=== PATIENT | male | born 1930 | race Caucasian/White ===

== ENCOUNTER 2017-06-03 04:56 | Inpatient (IN) ==
[2017-06-01 13:42] LABS: Basophils # (Auto) 0 K/mcL (0.0-0.3); Basophils % (Auto) 0.4 % (0.0-2.0); Eosinophils # (Auto) 0 K/mcL (0.0-0.7); Granulocytes % (Auto) 76.8 % (38.0-78.0); Lymphocytes # (Auto) 0.8 K/mcL (1.5-4.8); Lymphocytes % (Auto) 17.5 % (15.5-49.0); Mean Cell Volume 94.6 fL (80.0-100.0); Mean Corpuscular HGB Conc 33.9 g/dL (31.0-36.0); Mean Corpuscular Hemoglobin 32.1 pg (26.0-34.0); Monocytes # (Auto) 0.2 K/mcL (0.1-0.9); Monocytes % (Auto) 4.3 % (1.0-12.0); Platelet Count 210 K/mcL (140-440); RBC 4.15 M/mcL (4.50-5.90); Red Cell Distribution Width 16.6 % (11.5-14.5)
[2017-06-01 13:58] LABS: Blood Urea Nitrogen 16 mg/dl (8-23)
[2017-06-02 15:36] LABS: Appearance,Urine CLEAR; Bilirubin,Urine NEG (NEG); Color,Urine YELLOW; Glucose,Urine (UA) NEGATIVE (NEG); Leukocyte Esterase,Urine NEG /uL (NEG); Nitrate,Urine NEG (NEG); Protein,Urine NEG (NEG); Specific Gravity,Urine 1.019 (1.000-1.035); Urine Blood NEG mg/dL (<0.03)
[2017-06-03] MEDS ORDERED: KETOROLAC 30 MG, ROPIVACAINE HCL/PF 49.5 ML, EPINEPHrine 0.5 MG, 0.9 % SODIUM CHLORIDE ... IJ ONE (06:43)
[2017-06-03] MEDS ORDERED: PREGABALIN 75 MG CAPSULE PO SCH (06:45)
[2017-06-03] MEDS ORDERED: CELECOXIB 200 MG CAPSULE PO SCH (06:45)
[2017-06-03] MEDS ORDERED: ACETAMINOPHEN 500 MG TABLET PO SCH (06:45)
[2017-06-03] MEDS ORDERED: GABAPENTIN 300 MG CAPSULE PO SCH (06:45)
[2017-06-03] MEDS ORDERED: oxyCODONE 10 MG TAB.ER.12H PO SCH (06:45)
[2017-06-03] MEDS ORDERED: IPRATROPIUM/ALBUTEROL 3 ML AMPUL.NEB NEB ONE (07:20)
[2017-06-03] MEDS: ceFAZolin 1 GM VIAL IV SCH ×5 (07:21→23:22)
[2017-06-03] MEDS ORDERED: ROPIVACAINE HCL/PF 20 ML VIAL IJ ONE (08:00)
[2017-06-03] MEDS ORDERED: ONDANSETRON 4 MG/2 ML VIAL IV ONE (08:00)
[2017-06-03] MEDS ORDERED: PROPOFOL 200 MG/20 ML VIAL IV ONE (08:00)
[2017-06-03] MEDS ORDERED: DEXAMETHASONE 10 MG/ML VIAL IV ONE (08:00)
[2017-06-03] MEDS ORDERED: MIDAZOLAM 2 MG/2 ML VIAL IV ONE (08:00)
[2017-06-03] MEDS ORDERED: LIDOCAINE HCL/PF 100 MG/5 ML SYRINGE IV ONE (08:00)
[2017-06-03] MEDS ORDERED: PHENYLEPHRINE 10 MG/ML VIAL IV ONE (08:00)
[2017-06-03] MEDS ORDERED: TRANEXAMIC ACID 1,000 MG/10 ML VIAL IV ONE (08:00)
[2017-06-03] MEDS ORDERED: GENTAMICIN SULFATE 800 MG/20 ML VIAL IR ONE (08:17)
[2017-06-03] MEDS ORDERED: fentaNYL 100 MCG/2 ML VIAL IV PRN (09:34)
[2017-06-03] MEDS ORDERED: diphenhydrAMINE 50 MG/ML VIAL IV PRN (09:34)
[2017-06-03] MEDS ORDERED: LACTATED RINGERS 250 ML IV PRN (09:34)
[2017-06-03] MEDS ORDERED: NALOXONE HCL 0.4 MG/ML VIAL IV PRN (09:34)
[2017-06-03] MEDS ORDERED: HYDROmorphone 2 MG/ML SYRINGE IV PRN ×2 (09:34→10:09)
[2017-06-03] MEDS ORDERED: METHOCARBAMOL 1,000 MG/10 ML VIAL IV PRN (09:34)
[2017-06-03] MEDS ORDERED: MEPERIDINE 25 MG/ML SYRINGE IV PRN (09:34)
[2017-06-03] MEDS ORDERED: FLUMAZENIL 0.1 MG/ML ML IV PRN (09:34)
[2017-06-03] MEDS ORDERED: ePHEDrine 50 MG/ML AMPUL IV PRN (09:34)
[2017-06-03] MEDS ORDERED: PROMETHAZINE 25 MG/ML VIAL IV PRN (09:34)
[2017-06-03] MEDS ORDERED: BENZOCAINE/MENTHOL 1 LOZENGE PO PRN ×2 (09:34→10:09)
[2017-06-03] MEDS ORDERED: MEPERIDINE 50 MG/ML SYRINGE IM PRN (09:34)
[2017-06-03] MEDS ORDERED: IPRATROPIUM/ALBUTEROL 3 ML AMPUL.NEB NEB PRN ×2 (09:34→11:00)
[2017-06-03] MEDS ORDERED: PROMETHAZINE 25 MG/ML VIAL IM PRN (09:34)
[2017-06-03] MEDS ORDERED: ONDANSETRON 4 MG/2 ML VIAL IV PRN ×2 (09:34→10:09)
[2017-06-03] MEDS ORDERED: LACTATED RINGERS 1,000 ML IV SCH (09:45)
[2017-06-03] MEDS ORDERED: POLYETHYLENE GLYCOL 3350 17 GM PACKET PO PRN (10:09)
[2017-06-03] MEDS ORDERED: TRANEXAMIC ACID 1,000 MG/10 ML VIAL IV SCH (10:09)
[2017-06-03] MEDS ORDERED: BISACODYL 10 MG SUPP.RECT PR PRN (10:09)
[2017-06-03] MEDS ORDERED: ACETAMINOPHEN 325 MG TABLET PO PRN (10:09)
[2017-06-03] MEDS ORDERED: MAGNESIUM HYDROXIDE 30 ML ORAL.SUSP PO PRN (10:09)
[2017-06-03] MEDS ORDERED: FLEETS ADULT ENEMA PR PRN (10:09)
[2017-06-03] MEDS ORDERED: HYDROcodone/APAP 10/325MG TABLET PO PRN (10:09)
--- NOTE | 2017-06-03 10:09 | Brief Operative Note ---
Date of procedure: 06/03/17 Pre-op diagnosis: Leftt knee wornout and loose tka Post-op diagnosis: same Procedure: Left knee tka revision all coomp Grafts/Implants: Yes Anesthesia: GETA Findings: tissue showed 3 wbc per hpf Complications: none Surgeon: Dwayne Stevens Childhood Development Teacher: David Ramesh Estimated blood loss (cc): 150 Tourniquet Time (Minutes): 90 Specimens Removed/Pathology: none sent Condition: stable Disposition: PACU
[2017-06-03] MEDS ORDERED: NON FORMULARY MEDICATION 1 DOSE MISCELL (Acetaminophen 650 MG) PO PRN (10:14)
[2017-06-03] MEDS ORDERED: DICLOFENAC SODIUM 1% TOPICAL PRN (10:14)
[2017-06-03] MEDS ORDERED: guaiFENesin 600 MG TAB.SR.12H PO PRN (10:14)
[2017-06-03] MEDS ORDERED: ALBUTEROL SULFATE INH PRN (10:14)
[2017-06-03] MEDS ORDERED: POLYVINYL ALCOHOL OPHTH DROPS 15ML BOTTLE OU PRN (10:30)
--- NOTE | 2017-06-03 11:07 | XRay Report ---
HISTORY: Reason for Exam:Post-Op Total Knee FINDINGS: There is a well positioned total knee prosthesis. Along both medial and lateral sides of the joint there are small clusters of calcifications with irregular margins. These may be dystrophic calcifications from chronic inflammation/arthritis or small bone chips related to the surgery. There is no other evidence of a fracture. A moderate amount of calcified plaque is present in the superficial femoral and popliteal arteries. IMPRESSION: Well-positioned knee prosthesis Interpreted and Authenticated by: Primitivo Shaffer 06/03/17
[2017-06-03] MEDS: 0.45 % SODIUM CHLORIDE 1,000 ML IV SCH ×2 (11:58→20:52)
[2017-06-03] MEDS: KETOROLAC 15 MG/ML VIAL IV SCH ×3 (14:17→23:22)
[2017-06-03] MEDS: 0.9 % SODIUM CHLORIDE 10 ML SYRINGE IV SCH ×2 (14:18→23:23)
--- NOTE | 2017-06-03 14:49 | Operative Note ---
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 PROCEDURE: Left revision total knee arthroplasty of all the components, both patellofemoral, femoral and tibial components. SURGEON: Dwayne Stevens M.D. INVESTOR RELATIONS COORDINATOR: David Ramesh PA-C. ANESTHESIA: General LMA anesthesia. COMPLICATIONS: None. SPECIMENS: Fresh frozen tissue samples which showed less than 3 white blood cells per high-powered field with an extensive granulomatous material throughout the knee. IMPLANTS PLACED: A size 5 femur, size 5 tibial baseplate with 10 mm augments medial and lateral and a 5 mm augment laterally, a 13 mm poly. The femoral stem was 150 mm with 17 mm in diameter. The tibial stem was 16 mm, 150 mm in total length. DESCRIPTION OF PROCEDURE: The patient was brought to the operating room and put to sleep with general LMA anesthesia. Once we confirmed the left leg to be the operative site and the procedure to be a complete revision, a midline incision was made. This midline incision exposed the anterior capsule. We made a mid vastus approach to the knee and subluxed the patella laterally. We irrigated thoroughly and found the lateral patella to be impinging on the implant and uncovered with polyethylene. Once we then removed the femoral component and the tibial baseplate, which the tibial baseplate was loose, bone cement was also excised. We then placed an intramedullary guide shahriar into the tibia, made our freshened cut of 5 mm, placed a tibial baseplate with a 150 mm stem, 6 mm of offset at 1 o'clock position. Once this was done, we then removed osteophytes posteriorly. Also granulomatous materials in the medial and lateral gutters were removed. Specimens were sent for high-powered mendez of soft tissue for white blood cell count. Intramedullary guide shahriar into the femur. We reamed up to the size 17, made our distal femoral cut at 10 mm, measured from the mid portion of the medial and lateral epicondyles setting rotation. We placed the trial with a box cut with I believe a size 6 femur with a 5 mm lateral augment and 10 mm distal augments. These fit very well with a 13 poly. Full extension achieved, and the knee was stable throughout the range of motion. Both flexion and extension, equally balanced. We irrigated thoroughly. We cemented into place the tibial component as noted above, the femoral component. The patella was prepared by cutting the old patella off, at least the poly, preserving most of the bone and a small lateral chamfer. We then used an oval patella to covered 90% of the patella. This fit very nicely and moved the patella more laterally to match the patient's true anatomy. We irrigated thoroughly and cemented into place the patella. It sat perfectly in the groove, tracked very nicely. We irrigated. Total thickness was back to 24 mm, his normal anatomy. We then irrigated thoroughly and then once the cement was dried, we placed the final 13 poly implant. We deflated the tourniquet at about 90 minutes. Bleeding was controlled with Bovie, and the mid vastus approach was closed with #1 suture x2. These were barbed sutures. The skin was closed with 2-0 Vicryl and adhesive closure. Sterile bandage applied. The patient tolerated this well. Blood loss was about 50 mL to 100 mL. ALEXANDRA:clara Job ID: [id number] Doc ID: [id number] Dwayne Stevens MD
[2017-06-03] MEDS ORDERED: tiZANidine 4 MG TABLET PO PRN (15:00)
[2017-06-03] MEDS: metFORMIN 500 MG TABLET PO SCH (17:12)
[2017-06-03] MEDS: OMEPRAZOLE 20 MG CAPSULE PO SCH (17:12)
[2017-06-03] MEDS: GABAPENTIN 300 MG CAPSULE PO SCH (20:46)
[2017-06-03] MEDS: DOCUSATE SODIUM 100 MG CAPSULE PO SCH (20:46)
[2017-06-03] MEDS: APIXABAN 5 MG TABLET PO SCH (20:48)
[2017-06-03] MEDS ORDERED: SENNOSIDES 1 TABLET PO SCH (21:00)
[2017-06-03] MEDS ORDERED: TAMSULOSIN 0.4 MG CAPSULE PO SCH (21:00)
[2017-06-03] MEDS ORDERED: ASPIRIN 325 MG ENTERIC COATED TABLET PO SCH (21:00)
[2017-06-03] MEDS ORDERED: TEMAZEPAM 15 MG CAPSULE PO PRN (21:00)
[2017-06-03] MEDS ORDERED: MONTELUKAST 10 MG TABLET PO SCH (21:00)
[2017-06-03] MEDS: Budesonide/Formoterol Fumarate [Symbicort 160-4.5 MCG] Inhaler INH SCH (23:23)
[2017-06-04] MEDS: 0.9 % SODIUM CHLORIDE 10 ML SYRINGE IV SCH (05:50)
[2017-06-04] MEDS: KETOROLAC 15 MG/ML VIAL IV SCH (05:50)
[2017-06-04] MEDS: 0.45 % SODIUM CHLORIDE 1,000 ML IV SCH (07:24)
[2017-06-04] MEDS: OMEPRAZOLE 20 MG CAPSULE PO SCH (07:25)
[2017-06-04] MEDS: metFORMIN 500 MG TABLET PO SCH (07:25)
[2017-06-04] MEDS: APIXABAN 5 MG TABLET PO SCH (08:39)
[2017-06-04] MEDS: DOCUSATE SODIUM 100 MG CAPSULE PO SCH (08:39)
[2017-06-04] MEDS: GABAPENTIN 300 MG CAPSULE PO SCH (08:39)
[2017-06-04] MEDS: Budesonide/Formoterol Fumarate [Symbicort 160-4.5 MCG] Inhaler INH SCH (08:42)
[2017-06-04] MEDS ORDERED: CYANOCOBALAMIN (VITAMIN B-12) 500 MCG TABLET PO SCH (09:00)
[2017-06-04] MEDS ORDERED: MAGNESIUM OXIDE 400 MG TABLET PO SCH (09:00)
[2017-06-04] MEDS ORDERED: TIOTROPIUM BROMIDE 18 MCG INHALANT INH SCH (09:00)
[2017-06-04] MEDS ORDERED: VITAMIN D3 5,000 UNIT CAPSULE PO SCH (09:00)
[2017-06-04] MEDS ORDERED: LISINOPRIL 5 MG TABLET PO SCH (09:00)
[2017-06-04] MEDS ORDERED: FUROSEMIDE 20 MG TABLET PO SCH (09:00)
[2017-06-04] MEDS ORDERED: ASCORBIC ACID 500 MG TABLET PO SCH (09:00)
[2017-06-04] MEDS ORDERED: DILTIAZEM 240 MG CAP.XL.24H PO SCH (09:00)
--- NOTE | 2017-06-04 09:03 | Orthopedic Progress Note ---
Subjective Patient information: Note initiated : 06/04/17 at 9:01 am Service Date, if different from initiated Date: [] Patient: Darrian Sheikh 86 y/o M admitted on 06/03/17 for Left Total Knee Arthroplasty Revision. Chief Complaint: [minimal pain and walking well with no sob or cp ] Objective Vital signs: Vital Signs Temp Pulse Pulse Resp BP Pulse Ox 06/04/17 06:55 97.6 F 20 133/85 97 06/04/17 03:52 97.2 F 101 H 18 108/75 93 06/04/17 02:00 93 06/04/17 01:33 95 H 06/03/17 23:35 19 06/03/17 23:20 97.3 F 95 H 19 101/67 93 06/03/17 22:00 93 06/03/17 20:00 91 06/03/17 19:52 97.4 F 72 18 107/70 92 06/03/17 18:00 91 06/03/17 16:06 95 06/03/17 16:00 96.9 F L 18 128/82 95 06/03/17 14:25 121/86 95 06/03/17 13:59 117/66 98 06/03/17 13:25 113/81 92 06/03/17 13:00 91 H 91 H 06/03/17 12:55 117/75 98 06/03/17 12:10 119/76 95 06/03/17 11:55 119/86 97 06/03/17 11:40 96.4 F L 18 118/79 90 06/03/17 11:15 98.8 F 84 15 115/81 93 06/03/17 11:00 84 15 115/81 93 06/03/17 10:45 89 13 108/67 94 06/03/17 10:32 98.8 F 89 12 121/75 94 06/03/17 10:11 91 H 91 H 96 Intake and Output 06/03/17 06/04/17 06/04/17 21:59 05:59 13:59 Intake Total 1710 / 1710 250 / 250 1200 / 1200 Output Total 1450 / 1450 1450 / 1450 Balance 260 / 260 -1200 / -1200 1200 / 1200 Intake: IV 890 / 890 1000 / 1000 Sodium Chloride 0.45% 1,000 ml 890 / 890 1000 / 1000 @ 100 mls/hr IV .Q10H ROSALIA Rx#: [id number] Oral 820 / 820 250 / 250 200 / 200 Output: Urine Catheter Amount 1450 / 1450 Void Amount 1450 / 1450 Other: Meal Dinner Breakfast Percent of Meal Consumed 100% 100% Feeding Ability Independent Weight 212 lb Intake & Output: Intake & Output 06/03/17 06/04/17 06/04/17 21:59 05:59 13:59 Intake Total 1710 / 1710 250 / 250 1200 / 1200 Output Total 1450 / 1450 1450 / 1450 Balance 260 / 260 -1200 / -1200 1200 / 1200 Weight 212 lb Intake: IV 890 / 890 1000 / 1000 Sodium Chloride 0.45% 1,000 ml 890 / 890 1000 / 1000 @ 100 mls/hr IV .Q10H ROSALIA Rx#: [id number] Oral 820 / 820 250 / 250 200 / 200 Output: Urine Catheter Amount 1450 / 1450 Void Amount 1450 / 1450 Other: Meal Dinner Breakfast Percent of Meal Consumed 100% 100% Feeding Ability Independent Incision: Yes healing Incision clean and dry: Yes Dressing: Yes clean Weight bearing status: full Neurological exam IM: Yes oriented X3, Yes neurovascular intact Extremities exam IM: Yes Foot pink and warm, Yes neurovascular intact - Allied Health Allied health notes reviewed: PT (dc home today) - Labs CBC & BMP: 06/04/17 05:15 06/01/17 11:45 Labs: Orthopedic Labs 06/01/17 11:45 PT 14.3 INR 1.1 APTT 30 06/04/17 06/01/17 05:15 11:45 Hgb 13.3 L Hct 29.9 L 39.3 L
--- NOTE | 2017-06-04 09:08 | Discharge Summary ---
Ortho Discharge - TKA - Patient Instructions Diet: Regular Diet Activity: activity as tolerated, weight bearing as tolerated Total Knee Protocol: For Total Knee: Start ROM JOSE with stationary bike or rocking chair. Work on gaining full extension of knee. Posterior dislocation precautions provided. Hip abductor strengthening and gait training instructions provided. Apply Cryocuff as instructed. Dressing Care: May shower in 2 days Additional Dressing Instructions: Remove dressing on post op day #1 May remove bandage on post op day #1 and shower. Do not rub or wash wound, but may get it wet. Patient Education: Revision Total Joint Arthroplasty (DC) Additional Instructions: Discharge Instructions: Do the exercises at home that physical therapy gave you. Weight bearing as tolerated. Please call [facility] on TuesdayJune 06 to setup an appointment, . Wear comfortable clothing for your physical therapy. Take your prescription, photo ID, insurance cards, and current medication list with you to your first physical therapy appointment. Take your prescription to slate picker any medication or equipment (such as walker, crutches, toilet riser or C.P.M.) CPM for home use You have Dermabond (a dressing with a mesh-like appearance), leave open to air. Do not remove this dressing. You may start showering on post op day #2, TuesdayJune 05. The Dermabond dressing can get wet, do not scrub dressing. Pat dry. To avoid constipation while taking any narcotic pain medication, take an over the counter stool softener/laxative. Use your Cryocuff or ice packs as directed, on for 20 minutes at a time throughout the day. This and elevation will help with pain and swelling. Call your physician for fevers above 100.5 or pain not controlled by medication. Your prescriptions are with your discharge information. Some medications were electronically transmitted to your pharmacy of choice. - Follow Up Plan Follow Up Appointments: Dwayne Stevens MD [Family Provider] - 06/16/17 2:20 pm Disposition: Home, Self-Care Prognosis: Good Rehab Potential: Good I certify that the patient requires SNF services: No Overall status at discharge: patient is progressing back to baseline - Orders For Discharge Prescriptions: Aspirin [Ecotrin] 325 mg PO DAILY #14 tab.ec Hydrocodone/APAP 7.5/325Mg [[place] 7.5/325Mg] 1 - 2 tab PO Q4HP PRN #60 tab PRN Reason: Pain Additional Discharge Orders: Physical Therapy at Discharge - TKA Location: Determined By Patient CPM Discharge Order Location: Determined By Patient Toilet Riser Discharge Order Location: Determined By Patient Walker Location: Determined By Patient
[2017-06-04] MEDS ORDERED: FLU VACC QS2017-18 36MOS UP/PF 60 MCG/0.5 ML SYRINGE IM ONE (10:00)
--- NOTE | 2017-06-06 13:07 | Surgical Pathology Report ---
HISTOLOGY SPECIMEN MICROSCOPIC DIAGNOSIS CORRECTED REPORT TO FIX TYPOGRAPHICAL ERROR IN GROSS DESCRIPTION; DIAGNOSES ARE UNCHANGED: SPECIMEN A - SOFT TISSUE, LEFT KNEE, CAPSULE #1, BIOPSY: -- PATCHY CHRONIC INFLAMMATION WITH IRREGULAR FIBROSIS. -- NO NEUTROPHILS IDENTIFIED. SPECIMEN B - SOFT TISSUE, LEFT KNEE, CAPSULE #2, BIOPSY: -- PATCHY CHRONIC INFLAMMATION WITH IRREGULAR FIBROSIS. -- NO NEUTROPHILS IDENTIFIED. (ACP:sln) INTRAOPERATIVE CONSULTATION FROZEN SECTION DIAGNOSIS ([facility] [place], [place]) SPECIMEN A - LEFT KNEE, CAPSULE #1, BIOPSY: -- NO NEUTROPHILS IDENTIFIED. SPECIMEN B - LEFT KNEE, CAPSULE #2, BIOPSY: -- NO NEUTROPHILS IDENTIFIED. (ACP:sln) PROCEDURAL IMPRESSION Left failed total knee. GROSS DESCRIPTION Specimen A is received fresh as capsule #1, and consists of a yellow-goodwin portion of soft tissue that measures 5.0 x 2.0 x 1.0 cm. pappillary appearing areas of pale yellow discoloration are noted. Most of the specimen is submitted for frozen section analysis and for permanent sections as [id number]. Specimen B is recieved fresh as capsule #2, and consists of a pale yellow portion of soft tissue that measures 4.0 x 2.1 x 1.0 cm. Areas of cautery artifact are noted. Most of the specimen is submitted for frozen section analysis and for permanent sections as [id number]. (ACP:sln) Electronically Signed by: Aries Shaffer M.D.
== END 2017-06-04 11:15 | disposition home or self-care (01) | DRG 468 ==
LOC: MEDSUR 04:56
PROVIDERS: ADMIT Orthopaedic Surgery; ATTEND Orthopaedic Surgery

== ENCOUNTER 2020-04-02 16:34 | Inpatient (IN) ==
[2020-04-02] MEDS ORDERED: 0.9 % SODIUM CHLORIDE 1,000 ML IV ONE (17:08)
--- NOTE | 2020-04-02 17:37 | Emergency Department Note ---
HPI General Chief complaint: Weakness Stated complaint: Cold symptoms Time Seen by Provider: 04/02/20 17:16 Source: EMS Mode of arrival: EMS Limitations: no limitations History of Present Illness HPI Narrative: Narrative: This patient was brought in from home in [place] by EMS for fever cough shortness of breath nausea and diarrhea. He began getting ill yesterday with cough productive of some green-yellow phlegm. He does have a history of COPD and heart failure. He has had some chills and fever today. He has developed some watery diarrhea and nausea but has not actually vomited. He does feel slightly short of breath. Patient does describe having some mild pain in the left side of his neck towards his left shoulder and left clavicle. This pain is made worse by coughing. Onset (ago): day(s) Location: chest Severity: moderate Improves with: none Worsens with: other (Cough) Associated symptoms: Reports chest pain, cough, fever/chills, headaches, nausea/vomiting, shortness of breath and weakness Treatments Prior to Arrival: none Related Data Home Medications Medication Instructions Recorded Confirmed metformin 1,000 mg tablet 1,000 mg PO BIDCC 05/11/17 01/16/20 apixaban 2.5 mg tablet 2.5 mg PO BID 05/25/17 01/16/20 budesonide-formoterol HFA 160 2 puff INHALATION BID g 05/25/17 01/16/20 mcg-4.5 mcg/actuation aerosol inhaler guaifenesin 600 mg tablet, 600 mg PO Q12H PRN 05/25/17 01/16/20 extended release 12 hr tamsulosin 0.4 mg capsule 0.4 mg PO HS 05/25/17 01/16/20 albuterol sulfate 2 inh INHALATION Q4HP PRN 06/01/17 01/16/20 cyanocobalamin (vitamin B-12) 1,000 mcg PO DAILY 06/01/17 01/16/20 tizanidine 4 mg PO HSP PRN 06/01/17 01/16/20 amiodarone 200 mg PO QAC 12/23/17 01/16/20 multivitamin 1 cap PO QAM 06/13/18 01/16/20 nitroglycerin 0.4 mg sublingual 0.4 mg SUBLINGUAL Q5-15M PRN 06/13/18 01/16/20 tablet potassium chloride 10 mEq 10 meq PO QDAY 06/13/18 01/16/20 capsule,extended release tiotropium bromide 2.5 2 puff INHALATION QDAY 10/18/18 01/16/20 mcg/actuation mist for inhalation gabapentin 300 mg PO BID 11/13/18 01/16/20 montelukast 10 mg PO HS 11/13/18 01/16/20 acetaminophen 500 mg tablet See Rx Instructions PO TID PRN tab 05/18/19 01/16/20 ascorbate calcium (vitamin C) 500 0.5 g PO BID tab 05/18/19 01/16/20 mg tablet bisoprolol fumarate 10 mg tablet 5 mg PO QDAY tab 05/18/19 01/16/20 cholecalciferol (vitamin D3) 125 5,000 unit PO QDAY 05/18/19 01/16/20 mcg (5,000 unit) capsule ferrous sulfate 325 mg (65 mg 325 mg PO BID 05/18/19 01/16/20 iron) tablet ipratropium 0.5 mg-albuterol 3 mg 3 ml INHALATION .q4 PRN ml 05/18/19 01/16/20 (2.5 mg base)/3 mL nebulization soln omeprazole 20 mg capsule,delayed 40 mg PO BID cap 05/18/19 01/16/20 release sertraline 25 mg tablet 50 mg PO QDAY tab 05/18/19 01/16/20 spironolactone 25 mg tablet 12.5 mg PO QDAY tab 05/18/19 01/16/20 Previous Rx's Medication Instructions Recorded celecoxib 200 mg PO DAILY #10 cap 03/08/19 furosemide 20 mg PO DAILY #30 tab 01/16/20 azithromycin 250 mg PO DAILY #6 tab 03/05/20 prednisone 40 mg PO QDAY #10 tab 03/05/20 Allergies Allergy/AdvReac Type Severity Reaction Status Date / Time No Known Drug Allergies Allergy Verified 04/02/20 16:35 Review of Systems ROS ROS Narrative: Narrative: All systems ED: reviewed and negative except as stated. COUNT INCLUDES THE [facility] Narrative Patient History Narrative: Narrative: Medical/Surgical/Family History All Active Problems (Updated 04/02/20 @ 20:43 by Des Oshea MD) Congestive heart failure (Acute) Hypomagnesemia (Acute) Pneumonia (Acute) Pleural effusion (Chronic) COPD with exacerbation (Acute) DNR no code (do not resuscitate) (Chronic) Chronic anticoagulation (Chronic) Atrial fibrillation (Chronic) COPD (chronic obstructive pulmonary disease) (Chronic) History of myocardial infarction (Chronic) Atherosclerotic heart disease of [place] coronary artery without angina pectoris (Chronic) Type 2 diabetes mellitus (Chronic) Diabetic neuropathy (Chronic) MAG (obstructive sleep apnea) (Chronic) Hypertension (Chronic) Hypoxemia (Chronic) Pleural effusion on right (Chronic) Walker as ambulation aid (Chronic) Use of cane as ambulatory aid (Chronic) Snoring (Chronic) Poor historian (Chronic) Urinary frequency (Chronic) Spinal stenosis (Chronic) Arthritis (Chronic) Dysphasia (Chronic) Carpal tunnel syndrome (Chronic) Ulnar neuropathy (Chronic) Pain in joint (Chronic) Osteoarthritis (Chronic) Dysphagia (Chronic) Depression (Chronic) Confusion (Chronic) Chronic back pain (Chronic) Chronic radicular lumbar pain (Chronic) Medical History (Updated 04/02/20 @ 20:43 by Des Oshea MD) Abdominal pain (Resolved) Acute pericarditis (Resolved) Arthritis (Chronic) Atherosclerotic heart disease of [place] coronary artery without angina pectoris (Chronic) Atrial fibrillation (Chronic) Carpal tunnel syndrome (Chronic) Chronic anticoagulation (Chronic) apixaban, for afib. Chronic back pain (Chronic) Chronic radicular lumbar pain (Chronic) Confusion (Chronic) COPD (chronic obstructive pulmonary disease) (Chronic) COPD with exacerbation (Acute) Depression (Chronic) Diabetic neuropathy (Chronic) DNR no code (do not resuscitate) (Chronic) Per discussion 12/06/2019 in the emergency room with Dr. Solares. Patient seemed quite lucid and aware and capable of making this decision. Dry skin (Inactive) Dysphagia (Chronic) Dysphasia (Chronic) Fall from slip, trip, or stumble (Resolved) Headache (Resolved) History of myocardial infarction (Chronic) Hypertension (Chronic) Hypotension (Resolved) Hypoxemia (Chronic) MAG (obstructive sleep apnea) (Chronic) Osteoarthritis (Chronic) Pain in joint (Chronic) Pleural effusion on right (Chronic) Poor historian (Chronic) RUQ pain (Resolved) Mild right upper quadrant pain on deep inspiration. Encouraged to make primary care aware and his gastroenterology team. Seek care if worsens. 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) Family History Son , Onset Age: 48 Heart attack Heart disease Father , Onset Age: 57 Heart attack Mother , Onset Age: 72 Heart attack Heart disease Sister , Onset Age: 48 Heart attack Heart disease Brother , Onset Age: 68 Heart attack Heart disease Brother , Onset Age: 70 Heart attack Heart disease Brother , Onset Age: 78 Heart attack Heart disease Social History Smoking Status: Former smoker Alcohol Intake Frequency: does not drink Substance Use: does not use Exam Narrative Narrative: Narrative: General Limitations: no limitations Head Head: atraumatic, normocephalic and normal inspection Eye Eye: Present normal appearance, PERRL and EOMI; Absent scleral icterus and conjunctival injection ENT ENT: Present normal exam, normal oropharynx and mucous membranes moist Neck Neck: Present normal inspection and full ROM Chest Chest: Present normal inspection and symmetric chest wall rise Respiratory Respiratory: Present rales/crackles; Absent respiratory distress and wheezes Cardiovascular Cardiovascular: Present regular rate, normal rhythm and normal heart sounds Adbominal Abdominal: Present soft, tenderness, normal bowel sounds and other (Patient says that he always has some tenderness in the right upper quadrant.); Absent distention, guarding, rebound and rigidity Expanded Abdominal Abdominal Tenderness: Present RUQ and mild Extremities Extremities: Present normal inspection; Absent pedal edema and pretibial edema Neurological Neurological: Present alert Psychiatric Psychiatric: Present normal affect Skin Skin: Present warm and dry; Absent rash and diaphoresis Course Vital Signs Vital signs: Vital Signs Temperature 101.4 F H 04/02/20 16:35 Pulse Rate 108 H 04/02/20 16:35 Respiratory Rate 24 H 04/02/20 16:35 Blood Pressure 128/70 04/02/20 16:35 Pulse Oximetry (%) 98 04/02/20 16:35 Temperature 100.3 F H 04/02/20 18:01 Pulse Rate 71 04/02/20 19:31 Respiratory Rate 30 H 04/02/20 19:16 Blood Pressure 102/58 04/02/20 19:31 Pulse Oximetry (%) 98 04/02/20 19:31 MDM MDM Narrative Medical decision making narrative: Narrative: Patient work-up discloses a probable small pneumonia in the right lung field. Rest of his work-up and lab work and urine were reassuring. He may have some heart failure going on with a reading of that on his lung field and a BNP that is elevated. But his saturations have been good on oxygen. He will be admitted to the hospital for pneumonia by Dr. Anne. We did blood cultures and gave the patient Rocephin and doxycycline. Differential Diagnosis Differential Diagnosis: Pneumonia, COVID infection, sepsis, acute coronary syndrome Lab Data Lab results reviewed: Yes I reviewed the patient's lab results. Result diagrams: 04/02/20 17:18 04/02/20 17:18 Labs: Lab Results 04/02/20 04/02/20 04/02/20 Range/Units 17:18 17:18 17:18 WBC 8.0 (4.50-11.00) K/mcL RBC 3.35 L (4.63-6.08) M/mcL Hgb 10.8 L (13.7-17.5) g/dL Hct 32.1 L (40.1-51.0) % MCV 95.8 (80.0-100.0) fL MCH 32.2 (26.0-34.0) pg MCHC 33.6 (31.0-36.0) g/dL RDW 15.9 H (11.5-14.5) % Plt Count 197 (140-440) K/mcL MPV 9.5 (7.4-10.4) fL Gran % 84.8 H (38.0-78.0) % Lymph % (Auto) 6.8 L (15.5-49.0) % [place] % (Auto) 7.3 (1.0-12.0) % Eos % (Auto) 0.8 (0.0-7.0) % Baso % (Auto) 0.3 (0.0-2.0) % Gran # 6.76 (1.80-8.00) K/mcL Lymph # (Auto) 0.54 L (1.50-4.80) K/mcL [place] # (Auto) 0.58 (0.10-0.90) K/mcL Eos # (Auto) 0.06 (0.00-0.70) K/mcL Baso # (Auto) 0.02 (0.00-0.30) K/mcL VBG Lactic Acid 1.9 (0.5-2.0) mmol/L Sodium 131 L (133-145) mmol/L Potassium 4.7 (3.3-5.1) mmol/L Chloride 92 L (96-108) mmol/L Carbon Dioxide 27 (22-30) mmol/L Anion Gap 12.0 (8-16) BUN 11 (8-23) mg/dl Creatinine 0.8 (0.7-1.2) mg/dl GFR Calculation 80 Glucose 181 H (70-105) mg/dL Calcium 9.8 (8.6-10.4) mg/dl Total Bilirubin 1.3 H (0.0-1.0) mg/dL AST 18 (0-37) U/l ALT 12 (0-40) U/l Alkaline Phosphatase 52 (39-117) U/L Troponin T (0-0.03) ng/ml NT-Pro-B Natriuret Pep (0-450) pg/ml Total Protein 6.4 (5.9-8.4) gm/dL Albumin 3.9 (3.2-5.2) gm/dL Globulin 2.5 (2.2-3.7) gm/dL Albumin/Globulin Ratio 1.6 (1.0-2.3) Urine Color Urine Appearance Urine pH (5.0-9.0) Ur Specific [place] (1.000-1.035) Urine Protein (NEG) mg/dL Urine Glucose (UA) (NEG) mg/dL Urine Ketones (NEG) mg/dL Urine Occult Blood (<0.03) mg/dL Urine Nitrate (NEG) Urine Bilirubin (NEG) mg/dL Urine Urobilinogen (NEG) mg/dL Ur Leukocyte Esterase (NEG) /uL Urine RBC (0-1) /hpf Urine WBC (0-4) /hpf Ur Squamous Epith Cells (0-4) /hpf Urine Bacteria (0) /hpf Urine Mucus (0) /hpf Ur Culture Indicated? 04/02/20 04/02/20 04/02/20 Range/Units 17:18 17:18 17:46 WBC (4.50-11.00) K/mcL RBC (4.63-6.08) M/mcL Hgb (13.7-17.5) g/dL Hct (40.1-51.0) % MCV (80.0-100.0) fL MCH (26.0-34.0) pg MCHC (31.0-36.0) g/dL RDW (11.5-14.5) % Plt Count (140-440) K/mcL MPV (7.4-10.4) fL Gran % (38.0-78.0) % Lymph % (Auto) (15.5-49.0) % [place] % (Auto) (1.0-12.0) % Eos % (Auto) (0.0-7.0) % Baso % (Auto) (0.0-2.0) % Gran # (1.80-8.00) K/mcL Lymph # (Auto) (1.50-4.80) K/mcL [place] # (Auto) (0.10-0.90) K/mcL Eos # (Auto) (0.00-0.70) K/mcL Baso # (Auto) (0.00-0.30) K/mcL VBG Lactic Acid (0.5-2.0) mmol/L Sodium (133-145) mmol/L Potassium (3.3-5.1) mmol/L Chloride (96-108) mmol/L Carbon Dioxide (22-30) mmol/L Anion Gap (8-16) BUN (8-23) mg/dl Creatinine (0.7-1.2) mg/dl GFR Calculation Glucose (70-105) mg/dL Calcium (8.6-10.4) mg/dl Total Bilirubin (0.0-1.0) mg/dL AST (0-37) U/l ALT (0-40) U/l Alkaline Phosphatase (39-117) U/L Troponin T 0.02 (0-0.03) ng/ml NT-Pro-B Natriuret Pep 1299.0 H (0-450) pg/ml Total Protein (5.9-8.4) gm/dL Albumin (3.2-5.2) gm/dL Globulin (2.2-3.7) gm/dL Albumin/Globulin Ratio (1.0-2.3) Urine Color Yellow Urine Appearance Clear Urine pH 6.0 (5.0-9.0) Ur Specific [place] 1.015 (1.000-1.035) Urine Protein Neg (NEG) mg/dL Urine Glucose (UA) 50 A (NEG) mg/dL Urine Ketones Neg (NEG) mg/dL Urine Occult Blood Neg (<0.03) mg/dL Urine Nitrate Neg (NEG) Urine Bilirubin Neg (NEG) mg/dL Urine Urobilinogen 4.0 A (NEG) mg/dL Ur Leukocyte Esterase Neg (NEG) /uL Urine RBC 1 (0-1) /hpf Urine WBC 1 (0-4) /hpf Ur Squamous Epith Cells 0 (0-4) /hpf Urine Bacteria 0 (0) /hpf Urine Mucus Few (0) /hpf Ur Culture Indicated? No Radiology Data Radiology results reviewed: Yes I reviewed the patient's radiology results. Discharge Plan Patient/Caregiver Discharge Instructions Pt seen by [employer]PERATOR/PA only: No Clinical Impression: Pneumonia Patient Disposition: Xfer As Inpt ([facility]) Follow up with: Leonie Simpson ARNP [Primary Care Provider] - Prescriptions: No Action metformin 1,000 mg tablet 1,000 mg PO BIDCC RF: 0 multivitamin capsule 1 cap PO QAM RF: 0 nitroglycerin 0.4 mg tablet, sublingual 0.4 mg SUBLINGUAL Q5-15M PRN (Reason: Chest Pain) RF: 0 potassium chloride 10 mEq capsule, extended release 10 meq PO QDAY RF: 0 apixaban 2.5 mg tablet 2.5 mg PO BID RF: 0 budesonide-formoterol 160-4.5 mcg/actuation HFA aerosol inhaler 2 puff INHALATION BID RF: 0 guaifenesin 600 mg tablet extended release 12hr 600 mg PO Q12H PRN (Reason: Pain) RF: 0 tamsulosin 0.4 mg capsule,extended release 24hr 0.4 mg PO HS RF: 0 ipratropium-albuterol 0.5 mg-3 mg(2.5 mg base)/3 mL solution for nebulization 3 ml INHALATION .q4 PRN (Reason: Shortness Of Breath) RF: 0 omeprazole 20 mg capsule,delayed release(DR/EC) 40 mg PO BID RF: 0 Spiriva Respimat 2.5 mcg/actuation mist 2 puff INHALATION QDAY RF: 0 acetaminophen [Tylenol Extra Strength] 500 mg tablet See Rx Instructions PO TID PRN (Reason: Pain) RF: 0 ascorbate calcium (vitamin C) 500 mg tablet 0.5 g PO BID RF: 0 bisoprolol fumarate 10 mg tablet 10 mg tablet 5 mg PO QDAY RF: 0 cholecalciferol (vitamin D3) 5,000 unit capsule 5,000 unit PO QDAY RF: 0 ferrous sulfate [iron] 325 mg (65 mg iron) tablet 325 mg PO BID RF: 0 sertraline 25 mg tablet 50 mg PO QDAY RF: 0 spironolactone 25 mg tablet 12.5 mg PO QDAY RF: 0 tizanidine 4 MG tablet 4 mg PO HSP PRN (Reason: LEG CRAMPS) RF: 0 cyanocobalamin (vitamin B-12) 500 MCG tablet 1,000 mcg PO DAILY RF: 0 albuterol sulfate 6.7 GM HFA aerosol inhaler 2 inh INHALATION Q4HP PRN (Reason: shortness of breath) RF: 0 amiodarone 200 MG tablet 200 mg PO QAMCC RF: 0 montelukast 10 MG tablet 10 mg PO HS RF: 0 gabapentin 300 MG capsule 300 mg PO BID RF: 0 celecoxib 200 MG capsule 200 mg PO DAILY Qty: 10 RF: 0 furosemide 20 MG tablet 20 mg PO DAILY Qty: 30 RF: 0 azithromycin [azithromycin] 250 MG tablet 250 mg PO DAILY Qty: 6 RF: 0 prednisone 20 mg tablet 40 mg PO QDAY Qty: 10 RF: 0
[2020-04-02 17:41] LABS: Basophils # (Auto) 0.02 K/mcL (0.00-0.30); Basophils % (Auto) 0.3 % (0.0-2.0); Eosinophils # (Auto) 0.06 K/mcL (0.00-0.70); Eosinophils % (Auto) 0.8 % (0.0-7.0); Granulocytes % (Auto) 84.8 % (38.0-78.0); Hematocrit 32.1 % (40.1-51.0); Hemoglobin 10.8 g/dL (13.7-17.5); Lymphocytes # (Auto) 0.54 K/mcL (1.50-4.80); Lymphocytes % (Auto) 6.8 % (15.5-49.0); Mean Cell Volume 95.8 fL (80.0-100.0); Mean Corpuscular HGB Conc 33.6 g/dL (31.0-36.0); Mean Platelet Volume 9.5 fL (7.4-10.4); Monocytes # (Auto) 0.58 K/mcL (0.10-0.90); Monocytes % (Auto) 7.3 % (1.0-12.0); Platelet Count 197 K/mcL (140-440); RBC 3.35 M/mcL (4.63-6.08); Red Cell Distribution Width 15.9 % (11.5-14.5)
[2020-04-02 17:58] LABS: ALT/SGPT 12 U/l (0-40); AST/SGOT 18 U/l (0-37); Albumin 3.9 gm/dL (3.2-5.2); Albumin/Globulin Ratio 1.6 (1.0-2.3); Alkaline Phosphatase 52 U/L (39-117); Bilirubin,Total 1.3 mg/dL (0.0-1.0); Blood Urea Nitrogen 11 mg/dl (8-23); Calcium 9.8 mg/dl (8.6-10.4); Carbon Dioxide 27 mmol/L (22-30); Globulin 2.5 gm/dL (2.2-3.7); Glomerular Filtration Rate 80; Glucose 181 mg/dL (70-105)
[2020-04-02 17:59] LABS: Chloride 92 mmol/L (96-108)
--- NOTE | 2020-04-02 18:11 | XRay Report ---
INDICATION: Cough and fever TECHNIQUE: AP portable upright chest x-ray COMPARISON: Previous examinations dated 03/05/2020, 01/30/2020 FINDINGS:Previous right reverse shoulder arthroplasty Lungs:Left lung is negative. No focal parenchymal infiltrate or mass. Small volume right lung. Clinical correlation for previous surgery recommended. There is blunting of the right costophrenic angle. There is focal density at the right lung base. This is chronic. This may be chronic volume loss. Heart, vascular:Generalized cardiomegaly, unchanged. Pulmonary vascularity is prominent with upper lobe redistribution. Appearance is consistent with pulmonary congestion. No pulmonary edema Mediastinum, zackary:There are calcifications consistent with old granulomatous disease Pleura:Blunting of right costophrenic angle consistent with small right effusion. This is unchanged Skeletal:Negative. IMPRESSION: 1. Cardiomegaly and probable pulmonary congestion 2. Blunting of the right costophrenic angle consistent with small effusion 3. Low volume right lung as compared with the left 4. Mild right basilar parenchymal density. This is chronic. No acute infiltrate. Interpreted and Authenticated by: Americo Elaine 04/02/20
[2020-04-02 18:22] LABS: Appearance,Urine CLEAR; Bacteria,Urine 0 /hpf (0); Bilirubin,Urine NEG (NEG); Color,Urine YELLOW; Culture Indicated,Urine NO; Glucose,Urine (UA) 50 mg/dL (NEG); Ketones,Urine NEG (NEG); Leukocyte Esterase,Urine NEG /uL (NEG); Mucus,Urine FEW /hpf (0); Nitrate,Urine NEG (NEG); Protein,Urine NEG (NEG); Specific Gravity,Urine 1.015 (1.000-1.035); Urine Blood NEG mg/dL (<0.03); Urine RBC 1 /hpf (0-1); Urine Squamous Epithelial Cell 0 /hpf (0-4); Urine WBC 1 /hpf (0-4)
--- NOTE | 2020-04-02 20:08 | Cat Scan Report ---
INDICATION: Fever and cough with right upper quadrant tenderness COMPARISON: None. TECHNIQUE: Axial images were obtained through the chest,abdomen and pelvis. Sagittally and coronally reformatted images. 90ml Isovue 370 injected intravenously. FINDINGS: Chest CT:Beam hardening artifact from reversed right shoulder arthroplasty Lungs:Severe centrilobular emphysema. Very small left pleural effusion. No left lung infiltrate or mass. Low volume right lung. There is mild parenchymal density at the right lung base. There is a small right pleural effusion. Mediastinum:No pathologic mediastinal adenopathy. No hilar mass. Thoracic aorta is normal without aneurysmal dilatation Heart:Four-chamber cardiomegaly. Severe calcified coronary artery disease. No pericardial effusion Pleura:Small right pleural effusion. Very small left pleural effusion. Axilla, supraclavicular regions, chest wall:No pathologic axillary or supraclavicular adenopathy Musculoskeletal:No thoracic compression fractures. Sternum and ribs are negative. Abdomen/Pelvis: Liver:Negative liver. No focal intrahepatic mass. Liver contour is smooth. There is no ascites Gallbladder, bilary:Calcified gallstones in the dependent portion of the gallbladder. No gallbladder wall thickening or pericholecystic fluid. No dilated bile ducts Spleen:No splenomegaly. No focal intrasplenic abnormality. Normal enhancement of splenic and portal veins. Pancreas:No pancreatic mass. No peripancreatic abnormality Adrenal glands:Negative Kidneys, ureters, bladder:No solid or cystic renal mass. No hydronephrosis. No hydroureter. No ureteral stones Bladder is grossly negative. No bladder calculi Gastrointestinal:No detectable colonic mass. There is no diverticulitis. Small bowel is negative. No mechanical small bowel obstruction. No localized small bowel wall thickening or other evidence for ischemic enteritis Stomach and duodenum are within normal limits Appendix: The appendix is not well visualized. No evidence for appendicitis Vascular:Calcified abdominal aorta. No abdominal aortic aneurysm. Celiac trunk and superior mesenteric artery are opacified. There is severe calcification of the superior mesenteric artery. Lymphatic:No pathologic retroperitoneal or mesenteric adenopathy Mesentery, peritoneum:No free intraperitoneal fluid. No intra-abdominal abscess. 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 No lytic lesions. Sacrum, pelvis, hips are negative. No inguinal or abdominal wall hernia IMPRESSION: 1. Severe centrilobular emphysema 2. Right lower lobe pulmonary parenchymal density may represent benign volume loss but a small focal area of pneumonia is possible 3. Small pleural effusions, right greater than left 4. Cholelithiasis. No evidence for cholecystitis 5. Severe calcified coronary artery disease. There is cardiomegaly 6. Atherosclerotic calcification of the abdominal aorta. There is extensive calcification of the superior mesenteric artery. No CT evidence to suggest ischemic small bowel 7. No intra-abdominal abscess. 8. Degenerative disc disease The exam was performed using radiation dose optimization techniques including, but not limited to, automated exposure control, adjustment of the mA and/or kV according to patient size and use of iterative reconstruction technique. Interpreted and Authenticated by: Americo Elaine 04/02/20
[2020-04-02] MEDS ORDERED: cefTRIAXone 2 GM in DEXTROSE 5% IN WATER 50 ML IV ONE (20:14)
[2020-04-02] MEDS ORDERED: DOXYCYCLINE 100 MG in DEXTROSE 5% IN WATER 100 ML IV ONE (20:14)
--- NOTE | 2020-04-02 21:11 | Internal Med History&Physical ---
HPI History of Present Illness Patient information: Note initiated : 04/02/20 at 9:03 pm Service Date, if different from initiated Date: [] Patient: Darrian Sheikh a 89 y/o M admitted on for Cold symptoms. Chief Complaint: [] History of present illness: Mr. Sheikh is a 89 year old M Presents to the ED with shortness of breath and feeling ill. Patient states that he has been feeling ill since Tuesday after he got done with physical therapy and feels he was working too hard. He has been short of breath since then. He has had some fevers and chills. Denies nausea vomiting or diarrhea. He has had a more productive cough than usual, described as thick and yellow- green in nature. He also has some right upper chest/shoulder pleuritic pain. He has a headache as well. His temperature in the ED was 101 and he was mildly tachypneic and tachycardic. He had a CT of the chest abdomen pelvis which showed possibly a right lower lobe pneumonia no other significant findings. Review of Systems: Pertinent positives as above. Denies nausea/vomiting/abdominal pain//diarrhea. Remaining 10 point review of system reviewed negative PFSH PFSH All Active Problems (Updated 04/02/20 @ 20:43 by Des Oshea MD) Congestive heart failure (Acute) Hypomagnesemia (Acute) Pneumonia (Acute) Pleural effusion (Chronic) COPD with exacerbation (Acute) DNR no code (do not resuscitate) (Chronic) Chronic anticoagulation (Chronic) Atrial fibrillation (Chronic) COPD (chronic obstructive pulmonary disease) (Chronic) History of myocardial infarction (Chronic) Atherosclerotic heart disease of [place] coronary artery without angina pectoris (Chronic) Type 2 diabetes mellitus (Chronic) Diabetic neuropathy (Chronic) MAG (obstructive sleep apnea) (Chronic) Hypertension (Chronic) Hypoxemia (Chronic) Pleural effusion on right (Chronic) Walker as ambulation aid (Chronic) Use of cane as ambulatory aid (Chronic) Snoring (Chronic) Poor historian (Chronic) Urinary frequency (Chronic) Spinal stenosis (Chronic) Arthritis (Chronic) Dysphasia (Chronic) Carpal tunnel syndrome (Chronic) Ulnar neuropathy (Chronic) Pain in joint (Chronic) Osteoarthritis (Chronic) Dysphagia (Chronic) Depression (Chronic) Confusion (Chronic) Chronic back pain (Chronic) Chronic radicular lumbar pain (Chronic) Medical History (Updated 04/02/20 @ 20:43 by Des Oshea MD) Abdominal pain (Resolved) Acute pericarditis (Resolved) Arthritis (Chronic) Atherosclerotic heart disease of [place] coronary artery without angina pectoris (Chronic) Atrial fibrillation (Chronic) Carpal tunnel syndrome (Chronic) Chronic anticoagulation (Chronic) apixaban, for afib. Chronic back pain (Chronic) Chronic radicular lumbar pain (Chronic) Confusion (Chronic) COPD (chronic obstructive pulmonary disease) (Chronic) COPD with exacerbation (Acute) Depression (Chronic) Diabetic neuropathy (Chronic) DNR no code (do not resuscitate) (Chronic) Per discussion 12/06/2019 in the emergency room with Dr. Solares. Patient seemed quite lucid and aware and capable of making this decision. Dry skin (Inactive) Dysphagia (Chronic) Dysphasia (Chronic) Fall from slip, trip, or stumble (Resolved) Headache (Resolved) History of myocardial infarction (Chronic) Hypertension (Chronic) Hypotension (Resolved) Hypoxemia (Chronic) MAG (obstructive sleep apnea) (Chronic) Osteoarthritis (Chronic) Pain in joint (Chronic) Pleural effusion on right (Chronic) Poor historian (Chronic) RUQ pain (Resolved) Mild right upper quadrant pain on deep inspiration. Encouraged to make primary care aware and his gastroenterology team. Seek care if worsens. 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) Family History Son , Onset Age: 48 Heart attack Heart disease Father , Onset Age: 57 Heart attack Mother , Onset Age: 72 Heart attack Heart disease Sister , Onset Age: 48 Heart attack Heart disease Brother , Onset Age: 68 Heart attack Heart disease Brother , Onset Age: 70 Heart attack Heart disease Brother , Onset Age: 78 Heart attack Heart disease Social History (Updated 01/16/20 @ 14:37 by BETTY Franklin) marital status: service: Yes branch: [employer] smoking status: Former smoker pack-years: 15 alcohol intake frequency: does not drink substance use type: does not use MEDS/ALLERGIES Home Medications and Allergies Home Medications Medication Instructions Recorded Confirmed Type metformin 1,000 mg tablet 1,000 mg PO BIDCC 05/11/17 01/16/20 History apixaban 2.5 mg tablet 2.5 mg PO BID 05/25/17 01/16/20 History budesonide-formoterol HFA 160 2 puff INHALATION BID g 05/25/17 01/16/20 History mcg-4.5 mcg/actuation aerosol inhaler guaifenesin 600 mg tablet, 600 mg PO Q12H PRN 05/25/17 01/16/20 History extended release 12 hr tamsulosin 0.4 mg capsule 0.4 mg PO HS 05/25/17 01/16/20 History albuterol sulfate 2 inh INHALATION Q4HP PRN 06/01/17 01/16/20 History cyanocobalamin (vitamin B-12) 1,000 mcg PO DAILY 06/01/17 01/16/20 History tizanidine 4 mg PO HSP PRN 06/01/17 01/16/20 History amiodarone 200 mg PO QAMCC 12/23/17 01/16/20 History multivitamin 1 cap PO QAM 06/13/18 01/16/20 History nitroglycerin 0.4 mg sublingual 0.4 mg SUBLINGUAL Q5-15M PRN 06/13/18 01/16/20 History tablet potassium chloride 10 mEq 10 meq PO QDAY 06/13/18 01/16/20 History capsule,extended release tiotropium bromide 2.5 2 puff INHALATION QDAY 10/18/18 01/16/20 History mcg/actuation mist for inhalation gabapentin 300 mg PO BID 11/13/18 01/16/20 History montelukast 10 mg PO HS 11/13/18 01/16/20 History celecoxib 200 mg PO DAILY #10 cap 03/08/19 01/16/20 Rx acetaminophen 500 mg tablet See Rx Instructions PO TID PRN tab 05/18/19 01/16/20 History ascorbate calcium (vitamin C) 500 0.5 g PO BID tab 05/18/19 01/16/20 History mg tablet bisoprolol fumarate 10 mg tablet 5 mg PO QDAY tab 05/18/19 01/16/20 History cholecalciferol (vitamin D3) 125 5,000 unit PO QDAY 05/18/19 01/16/20 History mcg (5,000 unit) capsule ferrous sulfate 325 mg (65 mg 325 mg PO BID 05/18/19 01/16/20 History iron) tablet ipratropium 0.5 mg-albuterol 3 mg 3 ml INHALATION .q4 PRN ml 05/18/19 01/16/20 History (2.5 mg base)/3 mL nebulization soln omeprazole 20 mg capsule,delayed 40 mg PO BID cap 05/18/19 01/16/20 History release sertraline 25 mg tablet 50 mg PO QDAY tab 05/18/19 01/16/20 History spironolactone 25 mg tablet 12.5 mg PO QDAY tab 05/18/19 01/16/20 History furosemide 20 mg PO DAILY #30 tab 01/16/20 Rx azithromycin 250 mg PO DAILY #6 tab 03/05/20 Rx prednisone 40 mg PO QDAY #10 tab 03/05/20 Rx Allergies Allergy/AdvReac Type Severity Reaction Status Date / Time No Known Drug Allergies Allergy Verified 04/02/20 16:35 EXAM Constitutional Vitals: Temp Pulse Resp BP Pulse Ox 100.3 F H 100 H 26 H 105/55 89 L 04/02/20 18:01 04/02/20 20:47 04/02/20 20:47 04/02/20 20:46 04/02/20 20:47 Exam: General: Alert, Awake, No acute Distress Eyes/N/T: EOMI, PERRL, Head/Neck: neck supple, normocephalic atraumatic, hearing impairment CV: irreg irreg, No murmurs, normal s1/s2 Pulm: mild rhonchi/rales right base, left clear, no wheezing Abd: soft, nontender, +BS x4 Ext: no clubbing/cyanosis, mild b/l LE edema Neuro: Alert, no focal deficits, moves all extremities, CN 2-12 grossly intact, symmetrical strength b/l upper/lower, sensations intact b/l upper/lower Skin: warm/dry DATA Data Completed and Pending Labs: Labs from last 24 hours 04/02/20 04/02/20 04/02/20 19:54 17:46 17:18 WBC RBC Hgb Hct MCV MCH MCHC RDW Plt Count MPV Gran % Lymph % (Auto) [place] % (Auto) Eos % (Auto) Baso % (Auto) Gran # Lymph # (Auto) [place] # (Auto) Eos # (Auto) Baso # (Auto) Total Counted Band Neutrophils % Platelet Estimate RBC Morphology VBG Lactic Acid Sodium Potassium Chloride Carbon Dioxide Anion Gap BUN Creatinine GFR Calculation Glucose Osmolality Uric Acid Calcium Total Bilirubin AST ALT Alkaline Phosphatase Troponin T NT-Pro-B Natriuret Pep Total Protein Albumin Globulin Albumin/Globulin Ratio Procalcitonin Pending Urine Color Yellow Urine Appearance Clear Urine pH 6.0 Ur Specific [place] 1.015 Urine Protein Neg Urine Glucose (UA) 50 A Urine Ketones Neg Urine Occult Blood Neg Urine Nitrate Neg Urine Bilirubin Neg Urine Urobilinogen 4.0 A Ur Leukocyte Esterase Neg Urine RBC 1 Urine WBC 1 Ur Squamous Epith Cells 0 Urine Bacteria 0 Urine Mucus Few Ur Culture Indicated? No Urine Osmolality Ur Random Sodium SARS-CoV-2 (PCR) Pending 04/02/20 04/02/20 04/02/20 17:18 17:18 17:18 WBC RBC Hgb Hct MCV MCH MCHC RDW Plt Count MPV Gran % Lymph % (Auto) [place] % (Auto) Eos % (Auto) Baso % (Auto) Gran # Lymph # (Auto) [place] # (Auto) Eos # (Auto) Baso # (Auto) Total Counted Pending Band Neutrophils % Not Reportable Platelet Estimate Pending RBC Morphology Pending VBG Lactic Acid Sodium Potassium Chloride Carbon Dioxide Anion Gap BUN Creatinine GFR Calculation Glucose Osmolality Pending Uric Acid Calcium Total Bilirubin AST ALT Alkaline Phosphatase Troponin T NT-Pro-B Natriuret Pep Total Protein Albumin Globulin Albumin/Globulin Ratio Procalcitonin Urine Color Urine Appearance Urine pH Ur Specific [place] Urine Protein Urine Glucose (UA) Urine Ketones Urine Occult Blood Urine Nitrate Urine Bilirubin Urine Urobilinogen Ur Leukocyte Esterase Urine RBC Urine WBC Ur Squamous Epith Cells Urine Bacteria Urine Mucus Ur Culture Indicated? Urine Osmolality Pending Ur Random Sodium Pending SARS-CoV-2 (PCR) 0804/02/20 04/02/20 17:18 17:18 17:18 WBC RBC Hgb Hct MCV MCH MCHC RDW Plt Count MPV Gran % Lymph % (Auto) [place] % (Auto) Eos % (Auto) Baso % (Auto) Gran # Lymph # (Auto) [place] # (Auto) Eos # (Auto) Baso # (Auto) Total Counted Band Neutrophils % Platelet Estimate RBC Morphology VBG Lactic Acid Sodium Potassium Chloride Carbon Dioxide Anion Gap BUN Creatinine GFR Calculation Glucose Osmolality Uric Acid Pending Calcium Total Bilirubin AST ALT Alkaline Phosphatase Troponin T 0.02 NT-Pro-B Natriuret Pep 1299.0 H Total Protein Albumin Globulin Albumin/Globulin Ratio Procalcitonin Urine Color Urine Appearance Urine pH Ur Specific [place] Urine Protein Urine Glucose (UA) Urine Ketones Urine Occult Blood Urine Nitrate Urine Bilirubin Urine Urobilinogen Ur Leukocyte Esterase Urine RBC Urine WBC Ur Squamous Epith Cells Urine Bacteria Urine Mucus Ur Culture Indicated? Urine Osmolality Ur Random Sodium SARS-CoV-2 (PCR) 04/02/20 04/02/20 04/02/20 17:18 17:18 17:18 WBC 8.0 RBC 3.35 L Hgb 10.8 L Hct 32.1 L MCV 95.8 MCH 32.2 MCHC 33.6 RDW 15.9 H Plt Count 197 MPV 9.5 Gran % 84.8 H Lymph % (Auto) 6.8 L [place] % (Auto) 7.3 Eos % (Auto) 0.8 Baso % (Auto) 0.3 Gran # 6.76 Lymph # (Auto) 0.54 L [place] # (Auto) 0.58 Eos # (Auto) 0.06 Baso # (Auto) 0.02 Total Counted Band Neutrophils % Platelet Estimate RBC Morphology VBG Lactic Acid 1.9 Sodium 131 L Potassium 4.7 Chloride 92 L Carbon Dioxide 27 Anion Gap 12.0 BUN 11 Creatinine 0.8 GFR Calculation 80 Glucose 181 H Osmolality Uric Acid Calcium 9.8 Total Bilirubin 1.3 H AST 18 ALT 12 Alkaline Phosphatase 52 Troponin T NT-Pro-B Natriuret Pep Total Protein 6.4 Albumin 3.9 Globulin 2.5 Albumin/Globulin Ratio 1.6 Procalcitonin Urine Color Urine Appearance Urine pH Ur Specific [place] Urine Protein Urine Glucose (UA) Urine Ketones Urine Occult Blood Urine Nitrate Urine Bilirubin Urine Urobilinogen Ur Leukocyte Esterase Urine RBC Urine WBC Ur Squamous Epith Cells Urine Bacteria Urine Mucus Ur Culture Indicated? Urine Osmolality Ur Random Sodium SARS-CoV-2 (PCR) A/P Narrative A/P Narrative: A: *?RLL PNA: *SIRS (febrile/tachypneic/tachycardic): BP stable but low normal *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
[2020-04-02 21:31] LABS: Osmolality,Urine 488 mOsm/kg (80-1000)
[2020-04-02 21:50] LABS: Anisocytosis 1+ (NONE SEEN); Band Neutrophils % 3 % (0-10); Lymphocytes % 6 % (15-49); Monocytes % (Manual) 9 % (1-12); Myelocytes % 1 % (0-0); Nucleated Red Blood Cells 1 % (0-0); Platelet Estimate NORMAL (NORMAL); Polychromasia 1+ (NONE SEEN); RBC Morphology ABNORMAL (NORMAL); Segmented Neutrophils % 81 % (38-78)
[2020-04-02] MEDS ORDERED: IPRATROPIUM/ALBUTEROL 3 ML AMPUL.NEB NEB PRN (22:13)
[2020-04-02] MEDS ORDERED: DEXTROSE 50% 50 ML VIAL IV PRN (22:13)
[2020-04-02] MEDS ORDERED: METOPROLOL TARTRATE 5 MG/5 ML VIAL IV PRN (22:13)
[2020-04-02] MEDS ORDERED: DEXTROSE 31 GM ORAL.SUSP PO PRN (22:13)
[2020-04-02] MEDS ORDERED: POTASSIUM CHLORIDE 40 MEQ in DEXTROSE 5% IN WATER 500 ML IV PRN (22:13)
[2020-04-02] MEDS ORDERED: POTASSIUM CHLORIDE 20 MEQ TABLET PO PRN ×2 (22:13)
[2020-04-02] MEDS ORDERED: MAGNESIUM SULFATE 2 GM/50 ML BAG IV PRN (22:13)
[2020-04-02] MEDS ORDERED: POLYETHYLENE GLYCOL 3350 17 GM PACKET PO PRN (22:13)
[2020-04-02] MEDS ORDERED: ACETAMINOPHEN 325 MG TABLET PO PRN (22:13)
[2020-04-02] MEDS: cefTRIAXone 2 GM in DEXTROSE 5% IN WATER 50 ML IV SCH (22:28)
[2020-04-02] MEDS: 0.9 % SODIUM CHLORIDE 10 ML SYRINGE IV SCH (22:28)
[2020-04-02] MEDS ORDERED: IPRATROPIUM/ALBUTEROL 3 ML AMPUL.NEB NEB ONE (23:03)
[2020-04-02] MEDS: AZITHROMYCIN 500 MG in DEXTROSE 5% IN WATER 250 ML IV SCH (23:10)
[2020-04-03 00:29] LABS: Sodium, Urine Random 107 mmol/L
[2020-04-03] MEDS: 0.9 % SODIUM CHLORIDE 10 ML SYRINGE IV SCH ×4 (03:29→21:26)
[2020-04-03] MEDS ORDERED: IPRATROPIUM/ALBUTEROL 3 ML AMPUL.NEB NEB ONE (03:31)
--- NOTE | 2020-04-03 06:56 | XRay Report ---
INDICATION: pna TECHNIQUE: AP portable semiupright chest x-ray COMPARISON: Previous chest x-rays dated 04/02/2020, 03/05/2020, 01/30/2020. Previous chest CT scan dated 04/02/2020 FINDINGS: Lungs:Left lung remains negative. No focal pulmonary parenchymal infiltrate or mass. Low volume right lung. Persistent mild right basilar parenchymal density, unchanged. No new abnormality. Heart, vascular:Cardiomegaly, unchanged. No definite pulmonary edema Mediastinum, zackary:Calcified granulomas, unchanged Pleura:Blunting of right costophrenic angle is unchanged Skeletal:Negative. IMPRESSION: No interval change. Interpreted and Authenticated by: Americo Elaine 04/03/20
[2020-04-03 07:08] LABS: ALT/SGPT 10 U/l (0-40); AST/SGOT 15 U/l (0-37); Albumin 3.5 gm/dL (3.2-5.2); Albumin/Globulin Ratio 1.5 (1.0-2.3); Alkaline Phosphatase 43 U/L (39-117); Bilirubin,Direct 0.5 mg/dL (0.0-0.3); Bilirubin,Total 1.1 mg/dL (0.0-1.0); Blood Urea Nitrogen 10 mg/dl (8-23); Calcium 9.3 mg/dl (8.6-10.4); Carbon Dioxide 28 mmol/L (22-30); Globulin 2.4 gm/dL (2.2-3.7); Glomerular Filtration Rate 85; Glucose 150 mg/dL (70-105); Lactate Dehydrogenase 138 U/L (94-250); Triglycerides 81 mg/dl (<150); Uric Acid 4.6 mg/dL (2.5-8.0)
[2020-04-03 07:10] LABS: Chloride 95 mmol/L (96-108); Phosphorous 2.3 mg/dL (2.7-4.5)
--- NOTE | 2020-04-03 07:11 | Internal Med Progress Note ---
SUBJECTIVE Subjective Patient information: Note initiated : 04/03/20 at 7:07 am Service Date, if different from initiated Date: [] Patient: Darrian Sheikh a 89 y/o M admitted on 04/02/20 for Cold symptoms. Chief Complaint: [] Interval history: History of present illness: Mr. Sheikh is a 89 year old M Presents to the ED with shortness of breath and feeling ill. Patient states that he has been feeling ill since Tuesday after he got done with physical therapy and feels he was working too hard. He has been short of breath since then. He has had some fevers and chills. Denies nausea vomiting or diarrhea. He has had a more productive cough than usual, described as thick and yellow- green in nature. He also has some right upper chest/shoulder pleuritic pain. He has a headache as well. His temperature in the ED was 101 and he was mildly tachypneic and tachycardic. He had a CT of the chest abdomen pelvis which showed possibly a right lower lobe pneumonia no other significant findings. 04/03 States cough is less productive. Shortness of breath is improving. Otherwise no complaints. Review of Systems: denies headache/fever/chills/nausea/vomiting/abdominal pain//diarrhea. Otherwise see above. Constitutional Vitals: Vital Signs Temp Pulse Resp BP Pulse Ox 97.8 F 91 H 24 H 120/60 96 04/03/20 03:34 04/03/20 03:34 04/03/20 03:34 04/03/20 03:34 04/03/20 03:34 Period Temp Pulse Resp BP Sys/Jung Pulse Ox Last 24 Hr 97.8 F-101.4 F 71-113 11-34 101-138/43-93 89-99 Intake and Output 04/02/20 04/03/20 04/03/20 21:59 05:59 13:59 Intake Total 1050 683 Output Total 1100 Balance 1050 -417 Weight 90.265 kg 85.842 kg Intake & Output: Intake & Output 04/02/20 04/03/20 04/03/20 21:59 05:59 13:59 Intake Total 1050 683 Output Total 1100 Balance 1050 -417 Weight 90.265 kg 85.842 kg Intake: IV 1050 83 Sodium Chloride 0.9% 1,000 ml @ 1000 Wide Open IV BOLUS ONE Rx#: [id number] Vibramycin 100 mg In Dextrose 5 83 % in Water 100 ml @ 100 mls/hr IV ONCE ONE Rx#:[id number] Rocephin 2 gm In Dextrose 5% in 50 Water 50 ml @ 100 mls/hr IV ONCE ONE Rx#:[id number] Oral 600 Output: Void Amount 1100 Other: Urine Appearance Clear Urine Color Dark Yellow Urine Odor Normal Exam: General: Alert, Awake, No acute Distress Eyes/N/T: EOMI, Head/Neck: neck supple, hearing impairment CV: irreg irreg, No murmurs, Pulm: mild rhonchi/rales right base, left clear, no wheezing Abd: soft, nontender, +BS x4 Ext: no clubbing/cyanosis, mild b/l LE edema Neuro: Alert, no focal deficits, moves all extremities, Skin: warm/dry OBJ DATA Labs CBC & Chem 7: 04/02/20 17:18 04/03/20 05:08 Labs: Abnormal Lab Results 04/02/20 04/02/20 04/02/20 17:46 17:18 17:18 RBC Hgb Hct RDW Gran % Lymph % (Auto) Lymph # (Auto) Seg Neutrophils % 81 H Lymphocytes % 6 L Myelocytes % 1 H Nucleated RBCs 1 H Polychromasia 1+ A Anisocytosis 1+ A Sodium Chloride Glucose Osmolality 272 L Total Bilirubin NT-Pro-B Natriuret Pep Urine Glucose (UA) 50 A Urine Urobilinogen 4.0 A 04/02/20 04/02/20 04/02/20 17:18 17:18 17:18 RBC 3.35 L Hgb 10.8 L Hct 32.1 L RDW 15.9 H Gran % 84.8 H Lymph % (Auto) 6.8 L Lymph # (Auto) 0.54 L Seg Neutrophils % Lymphocytes % Myelocytes % Nucleated RBCs Polychromasia Anisocytosis Sodium 131 L Chloride 92 L Glucose 181 H Osmolality Total Bilirubin 1.3 H NT-Pro-B Natriuret Pep 1299.0 H Urine Glucose (UA) Urine Urobilinogen Meds: Medications Acetaminophen (Tylenol) 650 mg PO Q6HP PRN PRN Reason: PAIN/FEVER > 101 Albuterol/Ipratropium (Duoneb) 3 ml NEB Q4HP PRN PRN Reason: Shortness Of Breath Last Admin: 04/03/20 03:29 Dose: 3 ml Documented by: Dextrose (Dextrose 50%) 0 ml IV UD PRN PRN Reason: Hypoglycemia Diagnostic Test (Pha) (Accu-Chek) 1 each FS ACHS [facility] Last Admin: 04/02/20 23:20 Dose: 1 each Documented by: Famotidine (Pepcid) 20 mg PO BID [facility] Glucose (Insta-Glucose) 15 gm PO PRN PRN PRN Reason: Hypoglycemia Potassium Chloride 40 meq/ (Dextrose) 520 mls @ 130 mls/hr IV UD PRN PRN Reason: Potassium < 3 Magnesium Sulfate (Magnesium Sulfate) 2 gm in 50 mls @ 50 mls/hr IV UD PRN PRN Reason: Magnesium </= 1.6 Ceftriaxone Sodium 2 gm/ (Dextrose) 50 mls @ 100 mls/hr IV Q24H [facility]; Protocol Last Admin: 04/02/20 22:28 Dose: Not Given Documented by: Azithromycin 500 mg/ Dextrose 250 mls @ 250 mls/hr IV Q24H [facility]; Protocol Stop: 04/04/20 23:12 Last Admin: 04/02/20 23:10 Dose: 250 mls/hr Documented by: Insulin Human Lispro (Humalog) 0 unit SQ ACHS [facility]; Protocol Metoprolol Tartrate (Lopressor) 5 mg IV Q2HP PRN PRN Reason: Tachyarrhythmias HR>110 Ondansetron HCl (Zofran) 4 mg IV Q4HP PRN PRN Reason: Nausea And Vomiting Polyethylene Glycol (Miralax) 17 gm PO DAILYP PRN PRN Reason: Constipation Potassium Chloride (Kdur) 40 meq PO UD PRN PRN Reason: Potssium is 3-3.5 Potassium Chloride (Kdur) 40 meq PO UD PRN PRN Reason: Potassium < 3 Sodium Chloride (Saline Flush) 10 ml IV Q8 [facility] Last Admin: 04/03/20 05:32 Dose: Not Given Documented by: A/P Narrative A/P Narrative: A: *RLL PNA: -RVP neg *SIRS (febrile/tachypneic/tachycardic): BP stable -afebrile o/n *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: on lasix/aldactone/bb *AFib: On eliquis/amiodarone/metoprolol *Hyponatremia, chronic, mild: resolved *Anemia, chronic: *DM: On metformin *Depression: *GERD: * P: -Rocephin/Azithro, mrsa pcr neg -BC/SC pending -COVID pending -f/u CXR -monitor fluid balance -home meds clarified -SSI -pt/ot -CM for placement -ppx: Lovenox/home ppi DNR Time Spent With Patient Time: Total time spent is greater than 50% in coordination of care (as documented) at patient's floor/unit and/or counseling patient: QUALITY Stroke Symptom Onset Unknown: No VTE Deep Vein Thrombosis/Pulmonary Embolism Present on Admission: No
[2020-04-03 07:57] LABS: INR 0.9 (0.9-1.1)
[2020-04-03] MEDS: FAMOTIDINE 20 MG TABLET PO SCH ×2 (09:10→21:25)
[2020-04-03] MEDS: INSULIN LISPRO 1 UNIT/0.01 ML UNIT SQ SCH ×4 (09:43→21:23)
[2020-04-03] MEDS: cefTRIAXone 2 GM in DEXTROSE 5% IN WATER 50 ML IV SCH (09:43)
[2020-04-03] MEDS: APIXABAN 5 MG TABLET PO SCH ×2 (12:22→21:24)
[2020-04-03] MEDS: SERTRALINE 50 MG TABLET PO SCH (12:23)
[2020-04-03] MEDS: IPRATROPIUM/ALBUTEROL SULFATE 1 PUFF INHALER INH PRN ×2 (12:25→16:44)
[2020-04-03] MEDS: DIGOXIN 125 MCG TABLET PO SCH (13:59)
[2020-04-03] MEDS: PROPAFENONE 150 MG TABLET PO SCH ×2 (13:59→21:25)
[2020-04-03 15:36] LABS: Basophils # (Auto) 0.02 K/mcL (0.00-0.30); Basophils % (Auto) 0.3 % (0.0-2.0); Eosinophils # (Auto) 0.08 K/mcL (0.00-0.70); Eosinophils % (Auto) 1.3 % (0.0-7.0); Granulocytes % (Auto) 77.2 % (38.0-78.0); Hematocrit 29.3 % (40.1-51.0); Hemoglobin 9.6 g/dL (13.7-17.5); Lymphocytes # (Auto) 0.81 K/mcL (1.50-4.80); Lymphocytes % (Auto) 12.7 % (15.5-49.0); Mean Corpuscular HGB Conc 32.8 g/dL (31.0-36.0); Mean Platelet Volume 9.5 fL (7.4-10.4); Monocytes # (Auto) 0.54 K/mcL (0.10-0.90); Monocytes % (Auto) 8.5 % (1.0-12.0); Platelet Count 191 K/mcL (140-440); RBC 2.99 M/mcL (4.63-6.08); Red Cell Distribution Width 16.2 % (11.5-14.5); WBC 6.4 K/mcL (4.50-11.00)
[2020-04-03] MEDS ORDERED: VANCOMYCIN PER PHARMACY IV SCH (21:12)
[2020-04-03] MEDS: AZITHROMYCIN 500 MG in DEXTROSE 5% IN WATER 250 ML IV SCH (21:23)
[2020-04-03] MEDS: ONDANSETRON 4 MG/2 ML VIAL IV PRN (21:24)
[2020-04-03] MEDS: MONTELUKAST 10 MG TABLET PO SCH (21:24)
[2020-04-03] MEDS: TAMSULOSIN 0.4 MG CAPSULE PO SCH (21:25)
[2020-04-03] MEDS: VANCOMYCIN 1,000 MG in 0.9 % SODIUM CHLORIDE 250 ML IV SCH (22:52)
[2020-04-04] MEDS: IPRATROPIUM/ALBUTEROL SULFATE 1 PUFF INHALER INH PRN ×2 (01:21→09:31)
[2020-04-04] MEDS: ONDANSETRON 4 MG/2 ML VIAL IV PRN (03:12)
[2020-04-04] MEDS: PROPAFENONE 150 MG TABLET PO SCH ×3 (05:34→20:47)
[2020-04-04] MEDS: 0.9 % SODIUM CHLORIDE 10 ML SYRINGE IV SCH ×3 (05:34→21:06)
--- NOTE | 2020-04-04 07:20 | Internal Med Progress Note ---
SUBJECTIVE Subjective Patient information: Note initiated : 04/04/20 at 7:18 am Service Date, if different from initiated Date: [] Patient: Darrian Sheikh a 89 y/o M admitted on 04/02/20 for Cold symptoms. Chief Complaint: [] Interval history: History of present illness: Mr. Sheikh is a 89 year old M Presents to the ED with shortness of breath and feeling ill. Patient states that he has been feeling ill since Tuesday after he got done with physical therapy and feels he was working too hard. He has been short of breath since then. He has had some fevers and chills. Denies nausea vomiting or diarrhea. He has had a more productive cough than usual, described as thick and yellow- green in nature. He also has some right upper chest/shoulder pleuritic pain. He has a headache as well. His temperature in the ED was 101 and he was mildly tachypneic and tachycardic. He had a CT of the chest abdomen pelvis which showed possibly a right lower lobe pneumonia no other significant findings. 04/03 States cough is less productive. Shortness of breath is improving. Otherwise no complaints. 04/04 Patient complains of chronic bilateral shoulder pain and back pain. Says he is to go to acupuncture but stopped going I believe because of insurance changes. encouraged him to use the hydrocodone as needed as he was only using Tylenol. No increased oxygen is on home dose. But states when he gets the coughing that he gets real short of breath and he states that the nebulizer treatment worked a lot better than the inhaler. Review of Systems: denies headache/fever/chills/nausea/vomiting/abdominal pain/diarrhea. Otherwise see above. Constitutional Vitals: Vital Signs Temp Pulse Resp BP Pulse Ox 98.1 F 90 24 H 128/74 95 04/04/20 03:23 04/04/20 03:23 04/04/20 03:23 04/04/20 03:23 04/04/20 03:23 Period Temp Pulse Resp BP Sys/Jung Pulse Ox Last 24 Hr 97.2 F-98.8 F 72-93 16-24 110-130/60-74 94-97 Intake and Output 04/03/20 04/04/20 04/04/20 21:59 05:59 13:59 Intake Total 440 700 Output Total 375 150 Balance 65 550 Weight 86.183 kg Intake & Output: Intake & Output 04/03/20 04/04/20 04/04/20 21:59 05:59 13:59 Intake Total 440 700 Output Total 375 150 Balance 65 550 Weight 86.183 kg Intake: IV 500 Zithromax 500 mg In Dextrose 5% 250 in Water 250 ml @ 250 mls/hr IV Q24H [facility] Rx#:[id number] Vancomycin 1,000 mg In Sodium 250 Chloride 0.9% 250 ml @ 250 mls/ hr IV Q24H [facility] Rx#:[id number] Oral 440 200 Output: Void Amount 375 150 Other: Meal Dinner Percent of Meal Consumed 100% Feeding Ability Independent Urine Appearance Clear Urine Color Blood Tinged Dark Yellow Urine Odor Normal Exam: General: Alert, Awake, No acute Distress Eyes/N/T: EOMI, Head/Neck: neck supple, hearing impairment CV: irreg irreg, No murmurs, Pulm: mild rhonchi/rales at bases, no wheezing Abd: soft, nontender, +BS x4 Ext: no clubbing/cyanosis, no edema Neuro: Alert, no focal deficits, moves all extremities, Skin: warm/dry OBJ DATA Labs CBC & Chem 7: 04/03/20 05:08 04/04/20 05:19 Labs: Abnormal Lab Results 04/03/20 04/03/20 04/02/20 05:08 05:08 17:46 RBC 2.99 L Hgb 9.6 L Hct 29.3 L RDW 16.2 H Gran % Lymph % (Auto) 12.7 L Lymph # (Auto) 0.81 L Seg Neutrophils % Lymphocytes % Myelocytes % Nucleated RBCs Polychromasia Anisocytosis Sodium Chloride 95 L Glucose 150 H Osmolality Phosphorus 2.3 L Total Bilirubin 1.1 H Direct Bilirubin 0.5 H NT-Pro-B Natriuret Pep Urine Glucose (UA) 50 A Urine Urobilinogen 4.0 A 04/02/20 04/02/20 04/02/20 17:18 17:18 17:18 RBC Hgb Hct RDW Gran % Lymph % (Auto) Lymph # (Auto) Seg Neutrophils % 81 H Lymphocytes % 6 L Myelocytes % 1 H Nucleated RBCs 1 H Polychromasia 1+ A Anisocytosis 1+ A Sodium Chloride Glucose Osmolality 272 L Phosphorus Total Bilirubin Direct Bilirubin NT-Pro-B Natriuret Pep 1299.0 H Urine Glucose (UA) Urine Urobilinogen 04/02/20 04/02/20 17:18 17:18 RBC 3.35 L Hgb 10.8 L Hct 32.1 L RDW 15.9 H Gran % 84.8 H Lymph % (Auto) 6.8 L Lymph # (Auto) 0.54 L Seg Neutrophils % Lymphocytes % Myelocytes % Nucleated RBCs Polychromasia Anisocytosis Sodium 131 L Chloride 92 L Glucose 181 H Osmolality Phosphorus Total Bilirubin 1.3 H Direct Bilirubin NT-Pro-B Natriuret Pep Urine Glucose (UA) Urine Urobilinogen Meds: Medications Acetaminophen (Tylenol) 650 mg PO Q6HP PRN PRN Reason: PAIN/FEVER > 101 Albuterol/Ipratropium (Combivent) 2 puff INH QIDP PRN PRN Reason: Shortness Of Breath Last Admin: 04/04/20 01:21 Dose: 2 puff Documented by: Apixaban (Eliquis) 2.5 mg PO BID [facility] Last Admin: 04/03/20 21:24 Dose: 2.5 mg Documented by: Dextrose (Dextrose 50%) 0 ml IV UD PRN PRN Reason: Hypoglycemia Diagnostic Test (Pha) (Accu-Chek) 1 each FS ACHS [facility] Last Admin: 04/03/20 21:23 Dose: 1 each Documented by: Digoxin (Lanoxin) 125 mcg PO DAILY@1400 [facility] Last Admin: 04/03/20 13:59 Dose: 125 mcg Documented by: Famotidine (Pepcid) 20 mg PO BID [facility] Last Admin: 04/03/20 21:25 Dose: 20 mg Documented by: Furosemide (Lasix) 20 mg PO DAILY [facility] Glucose (Insta-Glucose) 15 gm PO PRN PRN PRN Reason: Hypoglycemia Potassium Chloride 40 meq/ (Dextrose) 520 mls @ 130 mls/hr IV UD PRN PRN Reason: Potassium < 3 Magnesium Sulfate (Magnesium Sulfate) 2 gm in 50 mls @ 50 mls/hr IV UD PRN PRN Reason: Magnesium </= 1.6 Ceftriaxone Sodium 2 gm/ (Dextrose) 50 mls @ 100 mls/hr IV Q24H [facility]; Protocol Last Infusion: 04/03/20 10:30 Dose: Infused Documented by: Azithromycin 500 mg/ Dextrose 250 mls @ 250 mls/hr IV Q24H [facility]; Protocol Stop: 04/04/20 23:12 Last Infusion: 04/03/20 22:30 Dose: Infused Documented by: Vancomycin HCl 1,000 mg/ (Sodium Chloride) 250 mls @ 250 mls/hr IV Q24H [facility] Last Infusion: 04/04/20 00:13 Dose: Infused Documented by: Insulin Human Lispro (Humalog) 0 unit SQ ACHS [facility]; Protocol Last Admin: 04/03/20 21:23 Dose: 6 unit Documented by: Metoprolol Tartrate (Lopressor) 5 mg IV Q2HP PRN PRN Reason: Tachyarrhythmias HR>110 Montelukast Sodium (Singular) 10 mg PO [facility] Last Admin: 04/03/20 21:24 Dose: 10 mg Documented by: Ondansetron HCl (Zofran) 4 mg IV Q4HP PRN PRN Reason: Nausea And Vomiting Last Admin: 04/04/20 03:12 Dose: 4 mg Documented by: Polyethylene Glycol (Miralax) 17 gm PO DAILYP PRN PRN Reason: Constipation Potassium Chloride (Kdur) 40 meq PO UD PRN PRN Reason: Potssium is 3-3.5 Potassium Chloride (Kdur) 40 meq PO UD PRN PRN Reason: Potassium < 3 Propafenone HCl (Rythmol) 150 mg PO Q8 [facility] Last Admin: 04/04/20 05:34 Dose: 150 mg Documented by: Sertraline HCl (Zoloft) 50 mg PO DAILY [facility] Last Admin: 04/03/20 12:23 Dose: 50 mg Documented by: Sodium Chloride (Saline Flush) 10 ml IV Q8 [facility] Last Admin: 04/04/20 05:34 Dose: 10 ml Documented by: Tamsulosin HCl (Flomax) 0.4 mg PO [facility] Last Admin: 04/03/20 21:25 Dose: 0.4 mg Documented by: Vancomycin HCl (Vancomycin Per Pharmacy) 1 order IV UD [facility]; Protocol A/P Narrative A/P Narrative: A: *RLL PNA: -RVP neg *Bacteremia(GPC): *SIRS (febrile/tachypneic/tachycardic): improved -afebrile o/n *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: on lasix/aldactone/?bb/ACEI -follows with [facility] cardio *AFib: On eliquis/propafenone/Dixogin *Hyponatremia, chronic, mild: *Anemia, chronic: *DM: On metformin *Depression: on SSRI *GERD: * P: -Rocephin/Jordanithjorge milton pending BC -BC/SC pending -COVID pending -monitor fluid balance -clarify home med -SSI, hold metformin for now given contrast study -pt/ot -CM for placement -ppx: eliquis/home ppi DNR Time Spent With Patient Time: Total time spent is greater than 50% in coordination of care (as documented) at patient's floor/unit and/or counseling patient: QUALITY Stroke Symptom Onset Unknown: No VTE Deep Vein Thrombosis/Pulmonary Embolism Present on Admission: No
[2020-04-04] MEDS ORDERED: OMEPRAZOLE 20 MG CAPSULE PO SCH (07:30)
[2020-04-04 07:32] LABS: Blood Urea Nitrogen 11 mg/dl (8-23); Calcium 8.8 mg/dl (8.6-10.4); Carbon Dioxide 26 mmol/L (22-30); Digoxin 0.7 ng/mL; Glomerular Filtration Rate 85; Glucose 157 mg/dL (70-105)
[2020-04-04 07:39] LABS: Chloride 92 mmol/L (96-108)
[2020-04-04] MEDS: INSULIN LISPRO 1 UNIT/0.01 ML UNIT SQ SCH ×4 (08:01→21:06)
[2020-04-04] MEDS: FAMOTIDINE 20 MG TABLET PO SCH ×2 (08:02→20:45)
[2020-04-04] MEDS: FUROSEMIDE 20 MG TABLET PO SCH (08:02)
[2020-04-04] MEDS: SERTRALINE 50 MG TABLET PO SCH (08:02)
[2020-04-04] MEDS: APIXABAN 5 MG TABLET PO SCH ×2 (08:02→20:45)
[2020-04-04] MEDS: cefTRIAXone 2 GM in DEXTROSE 5% IN WATER 50 ML IV SCH (09:00)
[2020-04-04] MEDS ORDERED: METHOCARBAMOL 500 MG TABLET PO PRN (09:36)
[2020-04-04] MEDS ORDERED: SODIUM CHLORIDE 1 GM TABLET PO ONE (09:36)
[2020-04-04] MEDS ORDERED: HYDROcodone/APAP 5/325MG TABLET PO PRN (09:37)
[2020-04-04] MEDS ORDERED: KETOROLAC 15 MG/ML VIAL IV ONE (09:39)
[2020-04-04] MEDS: VANCOMYCIN 1,000 MG in 0.9 % SODIUM CHLORIDE 250 ML IV SCH (10:46)
[2020-04-04] MEDS ORDERED: ALBUTEROL SULFATE 200 PUFF INHALER INH PRN (10:59)
[2020-04-04] MEDS: IPRATROPIUM/ALBUTEROL 3 ML AMPUL.NEB NEB PRN ×2 (13:00→20:27)
[2020-04-04] MEDS: DIGOXIN 125 MCG TABLET PO SCH (13:49)
[2020-04-04] MEDS: TAMSULOSIN 0.4 MG CAPSULE PO SCH (20:45)
[2020-04-04] MEDS: tiZANidine 4 MG TABLET PO SCH (20:45)
[2020-04-04] MEDS: MONTELUKAST 10 MG TABLET PO SCH (20:45)
[2020-04-04] MEDS: AZITHROMYCIN 500 MG in DEXTROSE 5% IN WATER 250 ML IV SCH (20:47)
[2020-04-05] MEDS: IPRATROPIUM/ALBUTEROL 3 ML AMPUL.NEB NEB PRN ×2 (02:57→15:20)
[2020-04-05] MEDS: PROPAFENONE 150 MG TABLET PO SCH ×3 (05:39→20:54)
[2020-04-05] MEDS: 0.9 % SODIUM CHLORIDE 10 ML SYRINGE IV SCH ×3 (05:39→22:27)
--- NOTE | 2020-04-05 07:35 | Internal Med Progress Note ---
SUBJECTIVE Subjective Patient information: Note initiated : 04/05/20 at 7:32 am Service Date, if different from initiated Date: [] Patient: Darrian Sheikh a 89 y/o M admitted on 04/02/20 for Cold symptoms. Chief Complaint: [] Interval history: History of present illness: Mr. Sheikh is a 89 year old M Presents to the ED with shortness of breath and feeling ill. Patient states that he has been feeling ill since Tuesday after he got done with physical therapy and feels he was working too hard. He has been short of breath since then. He has had some fevers and chills. Denies nausea vomiting or diarrhea. He has had a more productive cough than usual, described as thick and yellow- green in nature. He also has some right upper chest/shoulder pleuritic pain. He has a headache as well. His temperature in the ED was 101 and he was mildly tachypneic and tachycardic. He had a CT of the chest abdomen pelvis which showed possibly a right lower lobe pneumonia no other significant findings. 04/03 States cough is less productive. Shortness of breath is improving. Otherwise no complaints. 04/04 Patient complains of chronic bilateral shoulder pain and back pain. Says he is to go to acupuncture but stopped going I believe because of insurance changes. encouraged him to use the hydrocodone as needed as he was only using Tylenol. No increased oxygen is on home dose. But states when he gets the coughing that he gets real short of breath and he states that the nebulizer treatment worked a lot better than the inhaler. 04/05 Patient states he did better overnight. Does not seem to be complaining of as much shoulder back pain today. No overnight issues. Review of Systems: denies headache/fever/chills/nausea/vomiting/abdominal pain/diarrhea. Otherwise see above. Constitutional Vitals: Vital Signs Temp Pulse Resp BP Pulse Ox 98.4 F 105 H 28 H 158/86 98 04/05/20 03:03 04/05/20 03:03 04/05/20 03:03 04/05/20 03:03 04/05/20 03:03 Period Temp Pulse Resp BP Sys/Jung Pulse Ox Last 24 Hr 97.7 F-99.1 F 72-105 - 122-158/64-86 94-99 Intake and Output 04/04/20 04/05/20 04/05/20 21:59 05:59 13:59 Intake Total 100 Output Total 600 150 Balance -600 -50 Weight 86.772 kg Intake & Output: Intake & Output 04/04/20 04/05/20 04/05/20 21:59 05:59 13:59 Intake Total 100 Output Total 600 150 Balance -600 -50 Weight 86.772 kg Intake: Oral 100 Output: Void Amount 600 150 Other: Urine Appearance Clear Clear Urine Color Dark Yellow Dark Yellow Urine Odor Normal Exam: General: Alert, Awake, No acute Distress Eyes/N/T: EOMI, Head/Neck: neck supple, hearing impairment CV: irreg irreg, No murmurs, Pulm: mild rhonchi/rales at bases improving, no wheezing Abd: soft, nontender, +BS x4 Ext: no clubbing/cyanosis, trace b/l LE Neuro: Alert, no focal deficits, moves all extremities, Skin: warm/dry OBJ DATA Labs CBC & Chem 7: 04/03/20 05:08 04/05/20 05:28 Labs: Abnormal Lab Results 04/04/20 04/03/20 04/03/20 05:19 05:08 05:08 RBC 2.99 L Hgb 9.6 L Hct 29.3 L RDW 16.2 H Gran % Lymph % (Auto) 12.7 L Lymph # (Auto) 0.81 L Seg Neutrophils % Lymphocytes % Myelocytes % Nucleated RBCs Polychromasia Anisocytosis Sodium 129 L Chloride 92 L 95 L Glucose 157 H 150 H Osmolality Phosphorus 2.3 L Total Bilirubin 1.1 H Direct Bilirubin 0.5 H NT-Pro-B Natriuret Pep Urine Glucose (UA) Urine Urobilinogen 04/02/20 04/02/20 04/02/20 17:46 17:18 17:18 RBC Hgb Hct RDW Gran % Lymph % (Auto) Lymph # (Auto) Seg Neutrophils % 81 H Lymphocytes % 6 L Myelocytes % 1 H Nucleated RBCs 1 H Polychromasia 1+ A Anisocytosis 1+ A Sodium Chloride Glucose Osmolality 272 L Phosphorus Total Bilirubin Direct Bilirubin NT-Pro-B Natriuret Pep Urine Glucose (UA) 50 A Urine Urobilinogen 4.0 A 08/26/20 08/26/20 08/26/20 17:18 17:18 17:18 RBC 3.35 L Hgb 10.8 L Hct 32.1 L RDW 15.9 H Gran % 84.8 H Lymph % (Auto) 6.8 L Lymph # (Auto) 0.54 L Seg Neutrophils % Lymphocytes % Myelocytes % Nucleated RBCs Polychromasia Anisocytosis Sodium 131 L Chloride 92 L Glucose 181 H Osmolality Phosphorus Total Bilirubin 1.3 H Direct Bilirubin NT-Pro-B Natriuret Pep 1299.0 H Urine Glucose (UA) Urine Urobilinogen Meds: Medications Acetaminophen (Tylenol) 650 mg PO Q6HP PRN PRN Reason: PAIN/FEVER > 101 Hydrocodone Bitart/Acetaminophen ([place] 5/325mg) 1 tab PO Q4HP PRN; Protocol PRN Reason: Per Pain Protocol Last Admin: 04/05/20 03:14 Dose: 1 tab Documented by: Albuterol Sulfate (Ventolin) 2 puff INH Q4HP PRN PRN Reason: Shortness Of Breath Albuterol/Ipratropium (Duoneb) 3 ml NEB Q4HP PRN PRN Reason: Shortness Of Breath Last Admin: 04/05/20 02:57 Dose: 3 ml Documented by: Apixaban (Eliquis) 2.5 mg PO BID [facility] Last Admin: 04/04/20 20:45 Dose: 2.5 mg Documented by: Dextrose (Dextrose 50%) 0 ml IV UD PRN PRN Reason: Hypoglycemia Diagnostic Test (Pha) (Accu-Chek) 1 each FS ACHS [facility] Last Admin: 04/04/20 21:02 Dose: 1 each Documented by: Digoxin (Lanoxin) 125 mcg PO DAILY@1400 [facility] Last Admin: 04/04/20 13:49 Dose: 125 mcg Documented by: Famotidine (Pepcid) 20 mg PO BID [facility] Last Admin: 04/04/20 20:45 Dose: 20 mg Documented by: Furosemide (Lasix) 20 mg PO DAILY [facility] Last Admin: 04/04/20 08:02 Dose: 20 mg Documented by: Glucose (Insta-Glucose) 15 gm PO PRN PRN PRN Reason: Hypoglycemia Potassium Chloride 40 meq/ (Dextrose) 520 mls @ 130 mls/hr IV UD PRN PRN Reason: Potassium < 3 Magnesium Sulfate (Magnesium Sulfate) 2 gm in 50 mls @ 50 mls/hr IV UD PRN PRN Reason: Magnesium </= 1.6 Ceftriaxone Sodium 2 gm/ (Dextrose) 50 mls @ 100 mls/hr IV Q24H [facility]; Protocol Last Infusion: 04/04/20 09:31 Dose: Infused Documented by: Vancomycin HCl 1,000 mg/ (Sodium Chloride) 250 mls @ 250 mls/hr IV Q24H [facility] Last Infusion: 04/04/20 11:50 Dose: Infused Documented by: Insulin Human Lispro (Humalog) 0 unit SQ ACHS [facility]; Protocol Last Admin: 04/04/20 21:06 Dose: 2 unit Documented by: Methocarbamol (Robaxin) 500 mg PO QIDP PRN PRN Reason: Muscle Spasm Metoprolol Tartrate (Lopressor) 5 mg IV Q2HP PRN PRN Reason: Tachyarrhythmias HR>110 Montelukast Sodium (Singular) 10 mg PO [facility] Last Admin: 04/04/20 20:45 Dose: 10 mg Documented by: Ondansetron HCl (Zofran) 4 mg IV Q4HP PRN PRN Reason: Nausea And Vomiting Last Admin: 04/04/20 03:12 Dose: 4 mg Documented by: Spiriva Respimat 2.5 Mcg/Acutation Inhaler 2 dose INH DAILY [facility] Last Admin: 04/04/20 13:42 Dose: Not Given Documented by: Polyethylene Glycol (Miralax) 17 gm PO DAILYP PRN PRN Reason: Constipation Potassium Chloride (Kdur) 40 meq PO UD PRN PRN Reason: Potssium is 3-3.5 Potassium Chloride (Kdur) 40 meq PO UD PRN PRN Reason: Potassium < 3 Propafenone HCl (Rythmol) 150 mg PO Q8 [facility] Last Admin: 04/05/20 05:39 Dose: 150 mg Documented by: Sertraline HCl (Zoloft) 50 mg PO DAILY [facility] Last Admin: 04/04/20 08:02 Dose: 50 mg Documented by: Sodium Chloride (Saline Flush) 10 ml IV Q8 [facility] Last Admin: 04/05/20 05:39 Dose: 10 ml Documented by: Tamsulosin HCl (Flomax) 0.4 mg PO [facility] Last Admin: 04/04/20 20:45 Dose: 0.4 mg Documented by: Tizanidine HCl (Zanaflex) 4 mg PO [facility] Last Admin: 04/04/20 20:45 Dose: 4 mg Documented by: Vancomycin HCl (Vancomycin Per Pharmacy) 1 order IV UD [facility]; Protocol A/P Narrative A/P Narrative: A: *RLL PNA: -COVID/RVP neg, SC neg *Bacteremia(GPC): ?contaminant *SIRS (febrile/tachypneic/tachycardic): improved -afebrile o/n *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
[2020-04-05 07:48] LABS: Blood Urea Nitrogen 13 mg/dl (8-23); Calcium 8.9 mg/dl (8.6-10.4); Carbon Dioxide 29 mmol/L (22-30); Glomerular Filtration Rate 90; Glucose 157 mg/dL (70-105)
[2020-04-05] MEDS: INSULIN LISPRO 1 UNIT/0.01 ML UNIT SQ SCH ×4 (07:48→21:08)
[2020-04-05] MEDS: FUROSEMIDE 20 MG TABLET PO SCH (07:49)
[2020-04-05] MEDS: APIXABAN 5 MG TABLET PO SCH ×2 (07:49→20:54)
[2020-04-05] MEDS: SERTRALINE 50 MG TABLET PO SCH (07:49)
[2020-04-05] MEDS: FAMOTIDINE 20 MG TABLET PO SCH ×2 (07:49→22:27)
[2020-04-05 08:01] LABS: Chloride 93 mmol/L (96-108)
[2020-04-05] MEDS: cefTRIAXone 2 GM in DEXTROSE 5% IN WATER 50 ML IV SCH (08:01)
[2020-04-05] MEDS ORDERED: FUROSEMIDE 20 MG TABLET PO SCH (09:00)
[2020-04-05] MEDS: IPRATROPIUM/ALBUTEROL 3 ML AMPUL.NEB NEB SCH ×2 (09:01→19:16)
[2020-04-05] MEDS ORDERED: SODIUM CHLORIDE 1 GM TABLET PO ONE (11:11)
[2020-04-05] MEDS ORDERED: FUROSEMIDE 20 MG/2 ML VIAL IV ONE (11:11)
[2020-04-05] MEDS: SPIRONOLACTONE 25 MG TABLET PO SCH (11:40)
[2020-04-05] MEDS: CYANOCOBALAMIN (VITAMIN B-12) 500 MCG TABLET PO SCH (11:41)
[2020-04-05] MEDS: BUDESONIDE 1 PUFF INHALER INH SCH ×2 (11:42→22:27)
[2020-04-05] MEDS: VANCOMYCIN 1,000 MG in 0.9 % SODIUM CHLORIDE 250 ML IV SCH ×3 (12:01→22:30)
[2020-04-05] MEDS: DIGOXIN 125 MCG TABLET PO SCH (15:17)
[2020-04-05] MEDS: MELATONIN 3 MG TABLET PO SCH (20:53)
[2020-04-05] MEDS: LISINOPRIL 2.5 MG TABLET PO SCH (20:53)
[2020-04-05] MEDS: tiZANidine 4 MG TABLET PO SCH (20:53)
[2020-04-05] MEDS: MONTELUKAST 10 MG TABLET PO SCH (20:53)
[2020-04-05] MEDS: TAMSULOSIN 0.4 MG CAPSULE PO SCH (20:53)
[2020-04-06] MEDS: IPRATROPIUM/ALBUTEROL 3 ML AMPUL.NEB NEB PRN ×5 (01:36→23:37)
[2020-04-06] MEDS: 0.9 % SODIUM CHLORIDE 10 ML SYRINGE IV SCH ×3 (05:30→21:19)
[2020-04-06] MEDS: PROPAFENONE 150 MG TABLET PO SCH ×3 (05:30→21:18)
[2020-04-06] MEDS: INSULIN LISPRO 1 UNIT/0.01 ML UNIT SQ SCH ×4 (07:04→21:19)
[2020-04-06 07:08] LABS: ALT/SGPT 12 U/l (0-40); AST/SGOT 14 U/l (0-37); Albumin 3.3 gm/dL (3.2-5.2); Albumin/Globulin Ratio 1.4 (1.0-2.3); Alkaline Phosphatase 43 U/L (39-117); Bilirubin,Direct 0.4 mg/dL (0.0-0.3); Bilirubin,Total 0.7 mg/dL (0.0-1.0); Blood Urea Nitrogen 12 mg/dl (8-23); Calcium 8.9 mg/dl (8.6-10.4); Carbon Dioxide 30 mmol/L (22-30); Chloride 93 mmol/L (96-108); Globulin 2.3 gm/dL (2.2-3.7); Glomerular Filtration Rate 85; Glucose 162 mg/dL (70-105); Lactate Dehydrogenase 150 U/L (94-250); Phosphorous 2.5 mg/dL (2.7-4.5); Triglycerides 75 mg/dl (<150); Uric Acid 4.8 mg/dL (2.5-8.0)
[2020-04-06] MEDS ORDERED: FUROSEMIDE 40 MG/4 ML VIAL IV ONE (08:05)
--- NOTE | 2020-04-06 08:07 | Internal Med Progress Note ---
SUBJECTIVE Subjective Patient information: Note initiated : 04/06/20 at 8:03 am Service Date, if different from initiated Date: [] Patient: Darrian Sheikh a 89 y/o M admitted on 04/02/20 for Cold symptoms. Chief Complaint: [] Interval history: History of present illness: Mr. Sheikh is a 89 year old M Presents to the ED with shortness of breath and feeling ill. Patient states that he has been feeling ill since Tuesday after he got done with physical therapy and feels he was working too hard. He has been short of breath since then. He has had some fevers and chills. Denies nausea vomiting or diarrhea. He has had a more productive cough than usual, described as thick and yellow- green in nature. He also has some right upper chest/shoulder pleuritic pain. He has a headache as well. His temperature in the ED was 101 and he was mildly tachypneic and tachycardic. He had a CT of the chest abdomen pelvis which showed possibly a right lower lobe pneumonia no other significant findings. 04/03 States cough is less productive. Shortness of breath is improving. Otherwise no complaints. 04/04 Patient complains of chronic bilateral shoulder pain and back pain. Says he is to go to acupuncture but stopped going I believe because of insurance changes. encouraged him to use the hydrocodone as needed as he was only using Tylenol. No increased oxygen is on home dose. But states when he gets the coughing that he gets real short of breath and he states that the nebulizer treatment worked a lot better than the inhaler. 04/05 Patient states he did better overnight. Does not seem to be complaining of as much shoulder back pain today. No overnight issues. 04/06 No overnight events or new complaints. Has occasional cough and shortness of breath comes and goes he states. Sodium improved. Review of Systems: denies headache/fever/chills/nausea/vomiting/abdominal pain/diarrhea. Otherwise see above. Constitutional Vitals: Vital Signs Temp Pulse Resp BP Pulse Ox 97.2 F 88 20 100/58 97 04/06/20 06:56 04/06/20 06:56 04/06/20 06:56 04/06/20 06:56 04/06/20 06:56 Period Temp Pulse Resp BP Sys/Jung Pulse Ox Last 24 Hr 97.2 F-98.2 F 57-95 18-30 98-122/46-76 94-100 Intake and Output 04/05/20 04/06/20 04/06/20 21:59 05:59 13:59 Intake Total 500 Output Total 375 225 Balance -375 275 Weight 87.815 kg Intake & Output: Intake & Output 04/05/20 04/06/20 04/06/20 21:59 05:59 13:59 Intake Total 500 Output Total 375 225 Balance -375 275 Weight 87.815 kg Intake: IV 250 Vancomycin 1,000 mg In Sodium 250 Chloride 0.9% 250 ml @ 250 mls/ hr IV Q12H [facility] Rx#:[id number] Oral 250 Output: Void Amount 375 225 Other: Meal Dinner Percent of Meal Consumed 100% Feeding Ability Independent Urine Appearance Clear Urine Color Dark Yellow Dark Yellow Urine Odor Normal Stool Size Small Stool Color Brown Stool Consistency Soft Exam: General: Alert, Awake, No acute Distress Eyes/N/T: EOMI, Head/Neck: neck supple, hearing impairment CV: irreg irreg, No murmurs, Pulm: mild rhonchi/rales at bases improving, no wheezing Abd: soft, nontender, +BS x4 Ext: no clubbing/cyanosis, trace b/l LE Neuro: Alert, no focal deficits, moves all extremities, Skin: warm/dry OBJ DATA Labs CBC & Chem 7: 04/03/20 05:08 04/06/20 04:39 Labs: Abnormal Lab Results 04/06/20 04/05/20 04/04/20 04:39 05:28 05:19 RBC Hgb Hct RDW Lymph % (Auto) Lymph # (Auto) Sodium 132 L 128 L 129 L Chloride 93 L 93 L 92 L Anion Gap 6.0 L Creatinine 0.6 L Glucose 162 H 157 H 157 H Phosphorus 2.5 L Direct Bilirubin 0.4 H Total Protein 5.6 L 04/03/20 05:08 RBC 2.99 L Hgb 9.6 L Hct 29.3 L RDW 16.2 H Lymph % (Auto) 12.7 L Lymph # (Auto) 0.81 L Sodium Chloride Anion Gap Creatinine Glucose Phosphorus Direct Bilirubin Total Protein Meds: Medications Acetaminophen (Tylenol) 650 mg PO Q6HP PRN PRN Reason: PAIN/FEVER > 101 Hydrocodone Bitart/Acetaminophen ([place] 5/325mg) 1 tab PO Q4HP PRN; Protocol PRN Reason: Per Pain Protocol Last Admin: 04/05/20 03:14 Dose: 1 tab Documented by: Albuterol Sulfate (Ventolin) 2 puff INH Q4HP PRN PRN Reason: Shortness Of Breath Albuterol/Ipratropium (Duoneb) 3 ml NEB Q4HP PRN PRN Reason: Shortness Of Breath Last Admin: 04/06/20 06:44 Dose: 3 ml Documented by: Albuterol/Ipratropium (Duoneb) 3 ml NEB Q12 [facility] Last Admin: 04/05/20 19:16 Dose: 3 ml Documented by: Apixaban (Eliquis) 2.5 mg PO BID [facility] Last Admin: 04/05/20 20:54 Dose: 2.5 mg Documented by: Budesonide (Pulmicort) 2 puff INH BID [facility] Last Admin: 04/05/20 22:27 Dose: Not Given Documented by: Cyanocobalamin (Vitamin B-12) 1,000 mcg PO DAILY [facility] Last Admin: 04/05/20 11:41 Dose: 1,000 mcg Documented by: Dextrose (Dextrose 50%) 0 ml IV UD PRN PRN Reason: Hypoglycemia Diagnostic Test (Pha) (Accu-Chek) 1 each FS ACHS [facility] Last Admin: 04/06/20 07:05 Dose: 1 each Documented by: Digoxin (Lanoxin) 125 mcg PO DAILY@1400 [facility] Last Admin: 04/05/20 15:17 Dose: 125 mcg Documented by: Famotidine (Pepcid) 20 mg PO BID [facility] Last Admin: 04/05/20 22:27 Dose: 20 mg Documented by: Furosemide (Lasix) 20 mg PO DAILY [facility] Last Admin: 04/05/20 07:49 Dose: 20 mg Documented by: Glucose (Insta-Glucose) 15 gm PO PRN PRN PRN Reason: Hypoglycemia Potassium Chloride 40 meq/ (Dextrose) 520 mls @ 130 mls/hr IV UD PRN PRN Reason: Potassium < 3 Magnesium Sulfate (Magnesium Sulfate) 2 gm in 50 mls @ 50 mls/hr IV UD PRN PRN Reason: Magnesium </= 1.6 Ceftriaxone Sodium 2 gm/ (Dextrose) 50 mls @ 100 mls/hr IV Q24H [facility]; Protocol Last Infusion: 04/05/20 08:45 Dose: Infused Documented by: Vancomycin HCl 1,000 mg/ (Sodium Chloride) 250 mls @ 250 mls/hr IV Q12H [facility] Last Infusion: 04/05/20 23:30 Dose: Infused Documented by: Insulin Human Lispro (Humalog) 0 unit SQ ACHS [facility]; Protocol Last Admin: 04/06/20 07:04 Dose: 4 unit Documented by: Lisinopril (Zestril) 2.5 mg PO QHS [facility] Last Admin: 04/05/20 20:53 Dose: 2.5 mg Documented by: Melatonin (Melatonin 3mg Tablet) 3 mg PO QHS [facility] Last Admin: 04/05/20 20:53 Dose: 3 mg Documented by: Methocarbamol (Robaxin) 500 mg PO QIDP PRN PRN Reason: Muscle Spasm Metoprolol Tartrate (Lopressor) 5 mg IV Q2HP PRN PRN Reason: Tachyarrhythmias HR>110 Montelukast Sodium (Singular) 10 mg PO HS [facility] Last Admin: 04/05/20 20:53 Dose: 10 mg Documented by: Ondansetron HCl (Zofran) 4 mg IV Q4HP PRN PRN Reason: Nausea And Vomiting Last Admin: 04/04/20 03:12 Dose: 4 mg Documented by: Spiriva Respimat 2.5 Mcg/Acutation Inhaler 2 dose INH DAILY [facility] Last Admin: 04/05/20 07:39 Dose: Not Given Documented by: Polyethylene Glycol (Miralax) 17 gm PO DAILYP PRN PRN Reason: Constipation Potassium Chloride (Kdur) 40 meq PO UD PRN PRN Reason: Potssium is 3-3.5 Potassium Chloride (Kdur) 40 meq PO UD PRN PRN Reason: Potassium < 3 Propafenone HCl (Rythmol) 150 mg PO Q8 [facility] Last Admin: 04/06/20 05:30 Dose: 150 mg Documented by: Sertraline HCl (Zoloft) 50 mg PO DAILY [facility] Last Admin: 04/05/20 07:49 Dose: 50 mg Documented by: Sodium Chloride (Saline Flush) 10 ml IV Q8 [facility] Last Admin: 04/06/20 05:30 Dose: 10 ml Documented by: Spironolactone (Aldactone) 12.5 mg PO QDAY [facility] Last Admin: 04/05/20 11:40 Dose: 12.5 mg Documented by: Tamsulosin HCl (Flomax) 0.4 mg PO HS [facility] Last Admin: 04/05/20 20:53 Dose: 0.4 mg Documented by: Tizanidine HCl (Zanaflex) 4 mg PO HS [facility] Last Admin: 04/05/20 20:53 Dose: 4 mg Documented by: Vancomycin HCl (Vancomycin Per Pharmacy) 1 order IV UD [facility]; Protocol A/P Narrative A/P Narrative: A: *RLL PNA: -COVID/RVP neg, SC neg *Bacteremia(GPC): suspected ?contaminant *SIRS (febrile/tachypneic/tachycardic): improved -afebrile o/n *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
[2020-04-06] MEDS: IPRATROPIUM/ALBUTEROL 3 ML AMPUL.NEB NEB SCH ×2 (09:08→19:35)
--- NOTE | 2020-04-06 10:04 | Discharge Summary ---
Discharge Provider Provider Patient information: Note initiated : 04/06/20 at 10:03 am Service Date, if different from initiated Date: [] Patient: Darrian Sheikh 89 y/o M admitted on 04/02/20 for Cold symptoms. Chief Complaint: [] Date of admission: 04/02/20 22:13 Discharge date: 04/07/20 Primary care physician: Leonie Simpson Consults: 04/02/20 20:45 Consult to Physician [CONS] Stat Comment: Consulting Provider: Travis Anne Reason For Exam: Physician to Consult 04/04/20 13:43 Consult to Physician [CONS] Routine Comment: Consulting Provider: [facility] Reason For Exam: Physician to Consult Discharge Meds Discharge Medications Home Medications metformin 1,000 mg tablet 1,000 mg PO BIDCC 05/11/17 [History Confirmed 04/03/20 Last Taken 06/02/17 19:30] apixaban 2.5 mg tablet 2.5 mg PO BID 05/25/17 [History Confirmed 04/03/20 Last Taken 06/02/17 19:30] budesonide-formoterol HFA 160 mcg-4.5 mcg/actuation aerosol inhaler 2 puff INHALATION BID g 05/25/17 [History Confirmed 04/04/20 Last Taken 06/02/17 19:30] guaifenesin 600 mg tablet, extended release 12 hr 600 mg PO Q12H PRN 05/25/17 [History Confirmed 04/03/20 Last Taken 06/02/17 08:00] tamsulosin 0.4 mg capsule 0.4 mg PO HS 05/25/17 [History Confirmed 04/03/20 Last Taken 06/02/17 19:30] cyanocobalamin (vitamin B-12) 1,000 mcg PO DAILY 06/01/17 [History Confirmed 04/03/20 Last Taken 06/02/17 08:00] tizanidine 4 mg PO HS 06/01/17 [History Confirmed 04/03/20 Last Taken 06/02/17 08:00] amiodarone 200 mg PO QAC 12/23/17 [History Confirmed 04/06/20 Last Taken Unknown] multivitamin 1 cap PO QAM 06/13/18 [History Confirmed 04/06/20 Last Taken Unknown] nitroglycerin 0.4 mg sublingual tablet 0.4 mg SUBLINGUAL Q5-15M PRN 06/13/18 [History Confirmed 04/06/20 Last Taken Unknown] potassium chloride 10 mEq capsule,extended release 10 meq PO QDAY 06/13/18 [History Confirmed 04/06/20 Last Taken Unknown] tiotropium bromide 2.5 mcg/actuation mist for inhalation 2 puff INHALATION QDAY 10/18/18 [History Confirmed 04/04/20 Last Taken Unknown] gabapentin 300 mg PO BID 11/13/18 [History Confirmed 04/06/20 Last Taken Unknown] montelukast 10 mg PO HS 11/13/18 [History Confirmed 04/03/20 Last Taken Unknown] acetaminophen 500 mg tablet See Rx Instructions PO TID PRN tab 05/18/19 [History Confirmed 04/06/20 Last Taken Unknown] ascorbate calcium (vitamin C) 500 mg tablet 0.5 g PO BID tab 05/18/19 [History Confirmed 04/06/20 Last Taken Unknown] bisoprolol fumarate 10 mg tablet 5 mg PO QDAY tab 05/18/19 [History Confirmed 04/06/20 Last Taken Unknown] cholecalciferol (vitamin D3) 125 mcg (5,000 unit) capsule 5,000 unit PO QDAY 05/18/19 [History Confirmed 04/06/20 Last Taken Unknown] ferrous sulfate 325 mg (65 mg iron) tablet 325 mg PO BID 05/18/19 [History Confirmed 04/06/20 Last Taken Unknown] ipratropium 0.5 mg-albuterol 3 mg (2.5 mg base)/3 mL nebulization soln 3 ml INHALATION Q4H PRN ml 05/18/19 [History Confirmed 04/04/20 Last Taken Unknown] omeprazole 20 mg capsule,delayed release 40 mg PO BID cap 05/18/19 [History Confirmed 04/03/20 Last Taken Unknown] sertraline 25 mg tablet 50 mg PO QHS tab 05/18/19 [History Confirmed 04/03/20 Last Taken Unknown] spironolactone 25 mg tablet 12.5 mg PO QDAY tab 05/18/19 [History Confirmed 04/03/20 Last Taken Unknown] furosemide 20 mg PO DAILY #30 tab 01/16/20 [Rx Confirmed 04/03/20 Last Taken Unknown] PreserVision AREDS 1 tab PO BID 04/03/20 [History Confirmed 04/03/20 Last Taken Unknown] digoxin 125 mcg PO QDAY 04/03/20 [History Confirmed 04/03/20 Last Taken Unknown] lisinopril 2.5 mg PO QHS 04/03/20 [History Confirmed 04/03/20 Last Taken Unknown] magnesium oxide 400 mg PO QDAY 04/03/20 [History Confirmed 04/03/20 Last Taken Unknown] propafenone 150 mg PO TID 04/03/20 [History Confirmed 04/03/20 Last Taken Unknown] albuterol sulfate 2 puff INHALATION Q4H PRN 04/04/20 [History Confirmed 04/04/20 Last Taken Unknown] COURSE Hospital Course Hospital course: History of present illness: Mr. Sheikh is a 89 year old M Presents to the ED with shortness of breath and feeling ill. Patient states that he has been feeling ill since Tuesday after he got done with physical therapy and feels he was working too hard. He has been short of breath since then. He has had some fevers and chills. Denies nausea vomiting or diarrhea. He has had a more productive cough than usual, described as thick and yellow- green in nature. He also has some right upper chest/shoulder pleuritic pain. He has a headache as well. His temperature in the ED was 101 and he was mildly tachypneic and tachycardic. He had a CT of the chest abdomen pelvis which showed possibly a right lower lobe pneumonia no other significant findings. 04/03 States cough is less productive. Shortness of breath is improving. Otherwise no complaints. 04/04 Patient complains of chronic bilateral shoulder pain and back pain. Says he is to go to acupuncture but stopped going I believe because of insurance changes. encouraged him to use the hydrocodone as needed as he was only using Tylenol. No increased oxygen is on home dose. But states when he gets the coughing that he gets real short of breath and he states that the nebulizer treatment worked a lot better than the inhaler. 04/05 Patient states he did better overnight. Does not seem to be complaining of as much shoulder back pain today. No overnight issues. 04/06 No overnight events or new complaints. Has occasional cough and shortness of breath comes and goes he states. Sodium improved. 04/07 Doing well. No overnight events or new complaints. Stable for discharge to SNF. 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 *Anemia, chronic: *DM: On metformin *Depression: on SSRI *GERD: Discharge diagnosis: Pneumonia Sirs COPD Secondary discharge diagnosis: Chronic pleural effusions more on the right history of systolic and diastolic heart failure H fibrillation hyponatremia anemia diabetes depression GERD Time Spent with Patient Time attestation: Total time spent providing and/or coordinating discharge services: Time spent: Greater than 30 minutes EXAM Constitutional Vitals: Temp Pulse Resp BP Pulse Ox 97.2 F 88 20 100/58 97 04/06/20 06:56 04/06/20 06:56 04/06/20 06:56 04/06/20 06:56 04/06/20 06:56 Discharge Data Data Completed and Pending Labs on day of discharge: Labs from last 24 hours 04/06/20 04/06/20 04/05/20 09:55 04:39 10:13 Sodium 132 L Potassium 4.6 Chloride 93 L Carbon Dioxide 30 Anion Gap 9.0 BUN 12 Creatinine 0.7 GFR Calculation 85 Glucose 162 H Uric Acid 4.8 Calcium 8.9 Phosphorus 2.5 L Magnesium 1.7 Total Bilirubin 0.7 Direct Bilirubin 0.4 H GGT 23 AST 14 ALT 12 Alkaline Phosphatase 43 Lactate Dehydrogenase 150 Total Protein 5.6 L Albumin 3.3 Globulin 2.3 Albumin/Globulin Ratio 1.4 Triglycerides 75 Vancomycin Trough Pending 4.2 Preliminary micro results at discharge 04/02/20 17:40 Blood Culture - Preliminary Blood 04/04/20 21:02 Sputum Culture - Preliminary Sputum - Aerosol Induced 04/02/20 17:35 Blood Culture - Preliminary Blood Gram positive cocci Discharge Plan Patient/Caregiver Discharge Instructions Activity: increase activity as tolerated Diet: Consistent Carbohydrate Prescriptions: Continued metformin 1,000 mg tablet 1,000 mg PO BIDCC RF: 0 multivitamin capsule 1 cap PO QAM RF: 0 nitroglycerin 0.4 mg tablet, sublingual 0.4 mg SUBLINGUAL Q5-15M PRN (Reason: Chest Pain) RF: 0 potassium chloride 10 mEq capsule, extended release 10 meq PO QDAY RF: 0 apixaban 2.5 mg tablet 2.5 mg PO BID RF: 0 budesonide-formoterol 160-4.5 mcg/actuation HFA aerosol inhaler 2 puff INHALATION BID RF: 0 tamsulosin 0.4 mg capsule,extended release 24hr 0.4 mg PO HS RF: 0 ipratropium-albuterol 0.5 mg-3 mg(2.5 mg base)/3 mL solution for nebulization 3 ml INHALATION Q4H PRN (Reason: Shortness Of Breath) RF: 0 omeprazole 20 mg capsule,delayed release(DR/EC) 40 mg PO BID RF: 0 Spiriva Respimat 2.5 mcg/actuation mist 2 puff INHALATION QDAY RF: 0 acetaminophen [Tylenol Extra Strength] 500 mg tablet See Rx Instructions PO TID PRN (Reason: Pain) RF: 0 cholecalciferol (vitamin D3) 5,000 unit capsule 5,000 unit PO QDAY RF: 0 ferrous sulfate [iron] 325 mg (65 mg iron) tablet 325 mg PO BID RF: 0 sertraline 25 mg tablet 50 mg PO QHS RF: 0 spironolactone 25 mg tablet 12.5 mg PO QDAY RF: 0 tizanidine 4 MG tablet 4 mg PO HS RF: 0 cyanocobalamin (vitamin B-12) 500 MCG tablet 1,000 mcg PO DAILY RF: 0 montelukast 10 MG tablet 10 mg PO HS RF: 0 furosemide 20 MG tablet 20 mg PO DAILY Qty: 30 RF: 0 lisinopril 2.5 mg tablet 2.5 mg PO QHS RF: 0 digoxin 125 mcg (0.125 mg) Tablet 125 mcg PO QDAY RF: 0 PreserVision AREDS [id number] Tablet 1 tab PO BID RF: 0 propafenone 150 mg Tablet 150 mg PO TID RF: 0 magnesium oxide 400 mg magnesium Tablet 400 mg PO QDAY RF: 0 albuterol sulfate 90 mcg/actuation Hfa Aerosol Inhaler 2 puff INHALATION Q4H PRN (Reason: Shortness Of Breath) RF: 0 Discontinued celecoxib 200 MG capsule 200 mg PO DAILY Qty: 10 RF: 0 azithromycin [azithromycin] 250 MG tablet 250 mg PO DAILY Qty: 6 RF: 0 prednisone 20 mg tablet 40 mg PO QDAY Qty: 10 RF: 0 No Action guaifenesin 600 mg tablet extended release 12hr 600 mg PO Q12H PRN (Reason: Pain) RF: 0 ascorbate calcium (vitamin C) 500 mg tablet 0.5 g PO BID RF: 0 bisoprolol fumarate 10 mg tablet 10 mg tablet 5 mg PO QDAY RF: 0 amiodarone 200 MG tablet 200 mg PO QAC RF: 0 gabapentin 300 MG capsule 300 mg PO BID RF: 0 Follow Up Plan Follow up with: Leonie Simpson ARNP [Primary Care Provider] - Patient Disposition: Xfer SNF Rehab Potential: Undetermined I certify that the patient requires SNF services: Yes Overall status at discharge: patient is progressing back to baseline Discharge Orders: Discharge Order (Routine); Ordered 04/07/20 Ordered By: Travis Anne [facility] VTE Deep Vein Thrombosis/Pulmonary Embolism Present on Admission: No
[2020-04-06] MEDS: cefTRIAXone 2 GM in DEXTROSE 5% IN WATER 50 ML IV SCH (10:17)
[2020-04-06] MEDS: FAMOTIDINE 20 MG TABLET PO SCH ×2 (10:18→21:18)
[2020-04-06] MEDS: SPIRONOLACTONE 25 MG TABLET PO SCH (10:18)
[2020-04-06] MEDS: APIXABAN 5 MG TABLET PO SCH ×2 (10:18→21:18)
[2020-04-06] MEDS: CYANOCOBALAMIN (VITAMIN B-12) 500 MCG TABLET PO SCH (10:18)
[2020-04-06] MEDS: SERTRALINE 50 MG TABLET PO SCH (10:19)
[2020-04-06] MEDS: BUDESONIDE 1 PUFF INHALER INH SCH ×2 (10:19→21:19)
[2020-04-06] MEDS: BENZONATATE 100 MG CAPSULE PO PRN ×2 (14:46→23:36)
[2020-04-06] MEDS: DIGOXIN 125 MCG TABLET PO SCH (14:46)
[2020-04-06] MEDS: MONTELUKAST 10 MG TABLET PO SCH (21:18)
[2020-04-06] MEDS: tiZANidine 4 MG TABLET PO SCH (21:18)
[2020-04-06] MEDS: LISINOPRIL 2.5 MG TABLET PO SCH (21:18)
[2020-04-06] MEDS: MELATONIN 3 MG TABLET PO SCH (21:18)
[2020-04-06] MEDS: TAMSULOSIN 0.4 MG CAPSULE PO SCH (21:18)
[2020-04-07] MEDS: IPRATROPIUM/ALBUTEROL 3 ML AMPUL.NEB NEB PRN ×2 (04:51→13:36)
[2020-04-07] MEDS: 0.9 % SODIUM CHLORIDE 10 ML SYRINGE IV SCH ×2 (04:51→13:43)
[2020-04-07] MEDS: PROPAFENONE 150 MG TABLET PO SCH ×2 (05:07→13:43)
[2020-04-07] MEDS: CYANOCOBALAMIN (VITAMIN B-12) 500 MCG TABLET PO SCH (08:49)
[2020-04-07] MEDS: INSULIN LISPRO 1 UNIT/0.01 ML UNIT SQ SCH ×2 (08:49→11:56)
[2020-04-07] MEDS: SPIRONOLACTONE 25 MG TABLET PO SCH (08:50)
[2020-04-07] MEDS: SERTRALINE 50 MG TABLET PO SCH (08:50)
[2020-04-07] MEDS: FAMOTIDINE 20 MG TABLET PO SCH (08:50)
[2020-04-07] MEDS: APIXABAN 5 MG TABLET PO SCH (08:50)
[2020-04-07] MEDS: BUDESONIDE 1 PUFF INHALER INH SCH (08:51)
[2020-04-07] MEDS: cefTRIAXone 2 GM in DEXTROSE 5% IN WATER 50 ML IV SCH (08:59)
[2020-04-07] MEDS ORDERED: FUROSEMIDE 20 MG TABLET PO SCH (09:00)
[2020-04-07] MEDS: IPRATROPIUM/ALBUTEROL 3 ML AMPUL.NEB NEB SCH (09:02)
[2020-04-07] MEDS: DIGOXIN 125 MCG TABLET PO SCH (13:42)
== END 2020-04-07 14:10 | DRG 194 ==
LOC: ED 16:34 → MEDSUR 22:13
PROVIDERS: ADMIT Internal Medicine; ATTEND Internal Medicine